=== PATIENT | female | born 1955 | race Caucasian/White ===

== ENCOUNTER 2016-08-16 06:00 | Emergency (ER) | payer OTHER ==
--- NOTE | 2016-08-16 06:46 | ED NURSING NOTES ---
Clinical Report - Nurses [facility] [address] [place] [address] 08/16/2016 6:02 [id number] Triage time 06:Aug 16 2016. Acuity: LEVEL 3. Chief Complaint: (Out of Medication. Anxiety). Alert. AYESHA COMA SCORE: Ayesha Coma Scale: 15- eyes open spontaneously (4); best verbal response- oriented x 4 (5); best motor response- obeys commands (6). --06:34 Scott Delgadillo R.N. 06:24 08/16/16. BP: 111/77. HR: 72. RR: 16. O2 saturation: 100%. Temp: 98.4 F. Pain level now: 0/10. --06:34 Scott Delgadillo R.N. Weight: 52.1 kg. Height/Length: 63 inches. BMI: 20.4. --06:24 Scott Delgadillo R.N. Medications Albuterol Sulfate HFA Inhalation. LamoTRIgine Oral (Tablet Dispersible 200 mg) 1 tablet, day . TraZODone HCl Oral 50 mg, at bedtime. Wellbutrin Oral 150 mg, daily. --06:28 Scott Delgadillo R.N. Allergies Dilaudid. OxyCODONE HCl. --06:28 Scott Delgadillo R.N. History Arrived by private vehicle. Historian: patient. Accompanied by family. ( Out of Medications and becoming more anxious). Onset. (about 2 weeks ago). Treatment STRAP SETTER: None. PAST MEDICAL HX: The patient is post-menopausal. SOCIAL HX: Heavy tobacco smoker (cigarette)- less than 1 pack per day. FALL RISK ASSESSMENT: Fall risk assessment completed. No fall risk identified. NUTRITIONAL RISK ASSESSMENT: The nutritional risk assessment revealed no deficiencies. FUNCTIONAL ASSESSMENT: Functional assessment: no impairments noted. LEARNING NEEDS ASSESSMENT: The learning needs assessment revealed no barriers. SKIN INTEGRITY ASSESSMENT: Skin integrity risk assessment completed. No skin integrity risk identified. --06:34 Scott Delgadillo R.N. PROBLEMS: Pharyngitis. Abscess. Strep Throat. COPD - Chronic Obstructive Pulmonary Disease. Flank Pain. Bladder infection . Viral Disease. Lifestyle / Substance Problems. Epistaxis. Abdominal Pain. Sinusitis. Dental Caries. Dental Pain. Genital Lesion. Depression. --06:32 Scott Delgadillo R.N. ADDITIONAL SURGERIES: Coccyx. Dilatation & Curettage. Foot. Tonsillectomy. Tubal Ligation. --06:32 Scott Delgadillo R.N. Interventions ID and allergy band on patient. To treatment room. --06:34 Scott Delgadillo R.N. PHYSICAL ASSESSMENT Ambulatory to room. GENERAL / NEURO / PSYCH: Alert. Oriented X 4. HEENT: No facial asymmetry noted. Mucous membranes are pink. RESPIRATORY: Chest nontender. Breath sounds within normal limits. CVS: Normal sinus rhythm noted. Capillary refill less than 2 seconds. Pulses within normal limits. GI / : Abdomen soft and nontender and normal bowel sounds. SKIN: Skin intact. Skin is warm and dry. Normal skin turgor. --06:35 Scott Delgadillo R.N. NURSING PROGRESS NOTES Reassurance given. Patient identifiers checked. Call light placed in reach. Side rails up. Bed placed in lowest position. Brakes of bed on. Patient ready for evaluation- chart flagged and ED physician notified. --06:35 Scott Delgadillo R.N. DISPOSITION / DISCHARGE Reviewed medication(s) (Prescription given to pt.). Reviewed referral to family practice. Written instructions provided in Panamanian. The patient was discharged home and accompanied by reinsurance clerk. She left the Emergency Department ambulatory and via private vehicle. Steam Press Operator driving. --17:31 Scott Delgadillo R.N. Departure time: 644. --17:32 Scott Delgadillo R.N. Locked/Released at 08/24/2016 17:33 by Scott Delgadillo R.N.
--- NOTE | 2016-08-16 06:46 | ED NURSING NOTES ---
Clinical Report - Nurses [facility] [address] [place] [address] 08/16/2016 6:02 [id number] TRI[facility] Triage time 06:Aug 16 2016. Acuity: LEVEL 3. Chief Complaint: (Out of Medication. Anxiety). Alert. AYESHA COMA SCORE: Ayesha Coma Scale: 15- eyes open spontaneously (4); best verbal response- oriented x 4 (5); best motor response- obeys commands (6). --06:34 Scott Delgadillo R.N. 06:24 08/16/16. BP: 111/77. HR: 72. RR: 16. O2 saturation: 100%. Temp: 98.4 F. Pain level now: 0/10. --06:34 Scott Delgadillo R.N. Weight: 52.1 kg. Height/Length: 63 inches. BMI: 20.4. --06:24 Scott Delgadillo R.N. Medications Albuterol Sulfate HFA Inhalation. LamoTRIgine Oral (Tablet Dispersible 200 mg) 1 tablet, day . TraZODone HCl Oral 50 mg, at bedtime. Wellbutrin Oral 150 mg, daily. --06:28 Scott Delgadillo R.N. Allergies Dilaudid. OxyCODONE HCl. --06:28 Scott Delgadillo R.N. History Arrived by private vehicle. Historian: patient. Accompanied by family. ( Out of Medications and becoming more anxious). Onset. (about 2 weeks ago). Treatment DAY PORTER: None. PAST MEDICAL HX: The patient is post-menopausal. SOCIAL HX: Heavy tobacco smoker (cigarette)- less than 1 pack per day. FALL RISK ASSESSMENT: Fall risk assessment completed. No fall risk identified. NUTRITIONAL RISK ASSESSMENT: The nutritional risk assessment revealed no deficiencies. FUNCTIONAL ASSESSMENT: Functional assessment: no impairments noted. LEARNING NEEDS ASSESSMENT: The learning needs assessment revealed no barriers. SKIN INTEGRITY ASSESSMENT: Skin integrity risk assessment completed. No skin integrity risk identified. --06:34 Scott Delgadillo R.N. PROBLEMS: Pharyngitis. Abscess. Strep Throat. COPD - Chronic Obstructive Pulmonary Disease. Flank Pain. Bladder infection . Viral Disease. Lifestyle / Substance Problems. Epistaxis. Abdominal Pain. Sinusitis. Dental Caries. Dental Pain. Genital Lesion. Depression. --06:32 Scott Delgadillo R.N. ADDITIONAL SURGERIES: Coccyx. Dilatation & Curettage. Foot. Tonsillectomy. Tubal Ligation. --06:32 Scott Delgadillo R.N. Interventions ID and allergy band on patient. To treatment room. --06:34 Scott Delgadillo R.N. PHYSICAL ASSESSMENT Ambulatory to room. GENERAL / NEURO / PSYCH: Alert. Oriented X 4. HEENT: No facial asymmetry noted. Mucous membranes are pink. RESPIRATORY: Chest nontender. Breath sounds within normal limits. CVS: Normal sinus rhythm noted. Capillary refill less than 2 seconds. Pulses within normal limits. GI / : Abdomen soft and nontender and normal bowel sounds. SKIN: Skin intact. Skin is warm and dry. Normal skin turgor. --06:35 Scott Delgadillo R.N. NURSING PROGRESS NOTES Reassurance given. Patient identifiers checked. Call light placed in reach. Side rails up. Bed placed in lowest position. Brakes of bed on. Patient ready for evaluation- chart flagged and ED physician notified. --06:35 Scott Delgadillo R.N. DISPOSITION / DISCHARGE Reviewed medication(s) (Prescription given to pt.). Reviewed referral to family practice. Written instructions provided in Canadian. The patient was discharged home and accompanied by blind aide. She left the Emergency Department ambulatory and via private vehicle. Accountant Auditor driving. --17:31 Scott Delgadillo R.N. Departure time: 644. --17:32 Scott Delgadillo R.N. Locked/Released at 08/24/2016 17:33 by Scott Delgadillo R.N.
--- NOTE | 2016-08-16 06:46 | ED CLINICAL REPORT ---
Clinical Report - Physicians/Mid Levels [facility] [address] [place] [address] 08/16/2016 6:02 Patient: JEFF SOTO Arrived- By private vehicle. Historian- patient. HISTORY OF PRESENT ILLNESS Chief Complaint: ANXIOUS. This started Past several days. (ran out of medications.). She is non-compliant with medication. The patient has had anxiety. No delusions, suicidal thoughts, self-injury inflicted or hallucinations. The symptoms are described as moderate. No injury is present. Additional history - Patient was issued missed the past 3 appointments with her psychiatrist. Patient states that she was discharged from her clinic in regards to this. Unable to refill medications forpsychiatric conditions. Similar symptoms previously: Seen in a clinic. Hospitalized. REVIEW OF SYSTEMS No headache, chest pain, abdominal pain, fever or difficulty breathing. All systems otherwise negative, except as recorded above. PAST HISTORY See nurses notes. Medications: Albuterol Sulfate HFA Inhalation. LamoTRIgine Oral (Tablet Dispersible 200 mg) 1 tablet, day . TraZODone HCl Oral 50 mg, at bedtime. Wellbutrin Oral 150 mg, daily. Allergies: Dilaudid. OxyCODONE HCl. SOCIAL HISTORY Smoker- current status unknown. History of drug use: marijuana. No alcohol use. ADDITIONAL NOTES The nursing notes have been reviewed. PHYSICAL EXAM Vital Signs: 08/16/2016 06:24 BP: 111/77. HR: 72. RR: 16. O2 saturation: 100%. Temp: 98.4 F. Pain level now: 0/10. Blood pressure normal. Oxygen saturation normal. Appearance: Alert. No acute distress. Appearance is normal. Eyes: Pupils equal, round and reactive to light. Pupillary exam: Right pupil round and reactive to light directly and consensually and with accommodation. Left pupil: round and reactive to light directly and consensually and with accommodation. No abnormal funduscopic findings. Neck: Normal inspection. Neck supple. CVS: Normal heart rate and rhythm. Heart sounds normal. Respiratory: Breath sounds normal. Chest nontender. Abdomen: Soft and nontender. Skin: Skin warm and dry. Normal skin color. Normal skin turgor. Psych / Neuro: Oriented X 3. Mood and affect normal. Abnormal speech. Speech is pressured. Cognition normal. Thought process and content normal. Denies suicidal thoughts. Patient does not express homicidal thoughts. Insight and judgement normal. Cranial nerves normal (as tested). No cerebellar findings. No abnormal finger-nose test. Normal gait. No motor deficit. No weakness. No sensory deficit. Reflexes normal. PROGRESS AND PROCEDURES Course of Care: he patient is a pleasant 61-year-old female with past medical history significant for a complex Psychiatric problems, patient does not have any signs of psychosis or injury to self/danger or harm to others. Patient not having any suicidal ideation. Patient has good insight and judgment. Patient reports that she would like to get back on her medications. Patient was encouraged to follow up with her doctor in regards to the refill of her medications. Patient reports that if she is given a week's supply that should be plenty of time for her to follow-up with her doctor. No signs of infection. The patient has meningitis or other more sinister causes of her symptoms here in the emergency department today. Patient is smiling and active in the emergency department and recurrently jokes with staff and myself. Exam is otherwise unremarkable. Had discussion with patient in regards to workup, diagnosis, home care, follow-up, and return precautions answered. The patient expressed understanding of these instructions and was agreeable to them. Medications were confirmed by pharmacy. Had called [facility]. Spoke to pharmacist on staff there. Medications refilled. I discussion with pharmacist following the patient's departure from the emergency department. Patient had mistaken one of the medications that she was on. The patient had her medications changed via phone. Dosage changed. CLINICAL IMPRESSION 08/16/2016 06:24 BP: 111/77. HR: 72. RR: 16. O2 saturation: 100%. Temp: 98.4 F. Pain level now: 0/10. Blood pressure normal. Oxygen saturation normal. history of depression medication refill for above diagnosis. INSTRUCTIONS Warnings: GENERAL WARNINGS: Return or contact your physician immediately if your condition worsens or changes unexpectedly, if not improving as expected, or if other problems arise. Specifically return if pain, vomiting, bleeding, breathing difficulty or fever. Your Current Medications: CONTINUE TAKING THE FOLLOWING MEDICATIONS: Albuterol Sulfate HFA Inhalation. LamoTRIgine Oral : Tablet Dispersible 200 mg, 1 tablet day. TraZODone HCl Oral : 50 mg at bedtime. Wellbutrin Oral : 150 mg daily. Prescription Medications: Wellbutrin 200 mg once a day. Disp 7 each Paxil 150 mg once daily. Disp 7 each Trazadone 50 mg once before bed. Disp 7 each. Follow-up: Return to the emergency department as needed. Follow up with your doctor in three days. Reason for referral: recheck today's concerns. Summary of care provided to patient via paper. Screening today revealed the patient's blood pressure to be in the normal range. The patient should follow up with a primary care provider for blood pressure management. Understanding of the discharge instructions verbalized by patient. (Electronically signed by Shay Crum Dr. 08/19/2016 10:32)
--- NOTE | 2016-08-24 17:33 | ED MAR SUMMARY ---
..... Medication Administration Record [facility] [address], [place] [id number] Patient: JEFF SOTO Visit ID: [id number] 61y, F Weight: 52.1 kg Height/Length: 63 in BMI: 20.4 ALLERGIES: Dilaudid, OxyCODONE HCl
--- NOTE | 2016-08-24 17:33 | ED DISCHARGE INSTRUCTIONS ---
Patient: JEFF SOTO General Instructions [facility] VisitID: [id number] [place] [address] 61y, F Registration Date/Time: 08/16/2016 08/16/2016 06:24 BP: 111/77. HR: 72. RR: 16. O2 saturation: 100%. Temp: 98.4 F. Pain level now: 0/10. Blood pressure normal. Oxygen saturation normal. history of depression medication refill for above diagnosis. INSTRUCTIONS Warnings: GENERAL WARNINGS: Return or contact your physician immediately if your condition worsens or changes unexpectedly, if not improving as expected, or if other problems arise. Specifically return if pain, vomiting, bleeding, breathing difficulty or fever. Your Current Medications: CONTINUE TAKING THE FOLLOWING MEDICATIONS: Albuterol Sulfate HFA Inhalation. LamoTRIgine Oral : Tablet Dispersible 200 mg, 1 tablet day. TraZODone HCl Oral : 50 mg at bedtime. Wellbutrin Oral : 150 mg daily. Prescription Medications: Wellbutrin 200 mg once a day. Disp 7 each Paxil 150 mg once daily. Disp 7 each Trazadone 50 mg once before bed. Disp 7 each. Follow-up: Return to the emergency department as needed. Follow up with your doctor in three days. Reason for referral: recheck today's concerns. Summary of care provided to patient via paper. Screening today revealed the patient's blood pressure to be in the normal range. The patient should follow up with a primary care provider for blood pressure management. Understanding of the discharge instructions verbalized by patient. (Electronically signed by Shay Crum Dr. 08/19/2016 10:32)
--- NOTE | 2016-08-24 17:33 | ED MAR SUMMARY ---
..... Medication Administration Record [facility] [address] [place], [place] [id number] Patient: JEFF SOTO Visit ID: [id number] 61y, F Weight: 52.1 kg Height/Length: 63 in BMI: 20.4 ALLERGIES: Dilaudid, OxyCODONE HCl
--- NOTE | 2016-08-24 17:33 | ED MED RECONCILIATION SUMMARY ---
Patient: JEFF SOTO Medication Reconciliation Report [facility] VisitID: [id number] [place] [address] 61y, F Registration Date/Time: 08/16/2016 Weight: 52.1 kg Height/Length: 63 in. BMI: 20.4 ALLERGIES: Dilaudid, OxyCODONE HCl The patient's Home Medications are listed below: CONTINUE TAKING THE FOLLOWING MEDICATIONS: Albuterol Sulfate HFA Inhalation LamoTRIgine Oral (200 mg) 1 tablet, day TraZODone HCl Oral 50 mg, at bedtime Wellbutrin Oral 150 mg, daily The source(s) of the original Home Medication information: Not obtained. The following Medications were given to the patient in the Emergency Department: None. The following Medications were prescribed to the patient: Wellbutrin 200 mg once a day. Disp 7 eachPaxil 150 mg once daily. Disp 7 eachTrazadone 50 mg once before bed. Disp 7 each. -- Shay Crum Dr.
--- NOTE | 2016-08-24 17:33 | ED MED RECONCILIATION SUMMARY ---
Patient: JEFF SOTO Medication Reconciliation Report [facility] VisitID: [id number] [place] [address] 61y, F Registration Date/Time: 08/16/2016 Weight: 52.1 kg Height/Length: 63 in. BMI: 20.4 ALLERGIES: Dilaudid, OxyCODONE HCl The patient's Home Medications are listed below: CONTINUE TAKING THE FOLLOWING MEDICATIONS: Albuterol Sulfate HFA Inhalation LamoTRIgine Oral (200 mg) 1 tablet, day TraZODone HCl Oral 50 mg, at bedtime Wellbutrin Oral 150 mg, daily The source(s) of the original Home Medication information: Not obtained. The following Medications were given to the patient in the Emergency Department: None. The following Medications were prescribed to the patient: Wellbutrin 200 mg once a day. Disp 7 eachPaxil 150 mg once daily. Disp 7 eachTrazadone 50 mg once before bed. Disp 7 each. -- Shay Crum Dr.
--- NOTE | 2016-08-24 17:33 | ED DISCHARGE INSTRUCTIONS ---
Patient: JEFF SOTO General Instructions [facility] VisitID: [id number] [place] [address] 61y, F Registration Date/Time: 08/16/2016 08/16/2016 06:24 BP: 111/77. HR: 72. RR: 16. O2 saturation: 100%. Temp: 98.4 F. Pain level now: 0/10. Blood pressure normal. Oxygen saturation normal. history of depression medication refill for above diagnosis. INSTRUCTIONS Warnings: GENERAL WARNINGS: Return or contact your physician immediately if your condition worsens or changes unexpectedly, if not improving as expected, or if other problems arise. Specifically return if pain, vomiting, bleeding, breathing difficulty or fever. Your Current Medications: CONTINUE TAKING THE FOLLOWING MEDICATIONS: Albuterol Sulfate HFA Inhalation. LamoTRIgine Oral : Tablet Dispersible 200 mg, 1 tablet day. TraZODone HCl Oral : 50 mg at bedtime. Wellbutrin Oral : 150 mg daily. Prescription Medications: Wellbutrin 200 mg once a day. Disp 7 each Paxil 150 mg once daily. Disp 7 each Trazadone 50 mg once before bed. Disp 7 each. Follow-up: Return to the emergency department as needed. Follow up with your doctor in three days. Reason for referral: recheck today's concerns. Summary of care provided to patient via paper. Screening today revealed the patient's blood pressure to be in the normal range. The patient should follow up with a primary care provider for blood pressure management. Understanding of the discharge instructions verbalized by patient. (Electronically signed by Shay Crum Dr. 08/19/2016 10:32)
== END 2016-08-16 06:50 | disposition home or self-care (01) ==
LOC: ED SRH 06:00
DX: F32.9 Major depressive disorder, single episode, unspecified (principal); Z76.0 Encounter for issue of repeat prescription; Z88.5 Allergy status to narcotic agent; Z79.51 Long term (current) use of inhaled steroids

== ENCOUNTER 2016-12-02 14:30 | Emergency (ER) | payer OTHER ==
--- NOTE | 2016-12-02 15:37 | DIAGNOSTIC IMAGING REPORT ---
PROCEDURE: XR ANKLE 3 OR 4 VIEWS - LEFT INDICATION: TRAUMA/INJURY TECHNIQUE: Four views. COMPARISON: Left foot films 07/02/2016 FINDINGS: Osseous structures and joint spaces are normal. IMPRESSION: 1. Normal left ankle.
--- NOTE | 2016-12-02 16:27 | ED ORDER SUMMARY ---
..... Patient: JEFF SOTO OrderSheet [facility] VisitID: [id number] [address] [place] [address] 61y, F Registration Date/Time: 12/02/2016 ORDER SHEET Weight: 68.0 kg (stated) Allergies: Dilaudid, OxyCODONE HCl GENERAL ORDERS: Ankle 3 or 4V Left Urgent (15:03 12/02/2016 EKoroleva P.A.-C) (Ack 15:08 LNations ER Tech1) (15:16 TLewis R.N.) CT Lower Extremity Without Contrast - Left (calcaneous) Urgent (15:33 12/02/2016 EKorolemariam P.A.-C) (Ack 15:39 LNations ER Tech1) (16:10 TLewis R.N.) Splint (LE) (Left) (boot) (16:33 12/02/2016 EKorolemariam P.A.-C) (Ack 16:36 LNations ER Tech1) (16:53 TLewis R.N.) MEDICATION ORDERS: Hydrocodone-APAP PO 7.5/325 mg (NOW, HIGH ALERT MEDICATION) (15:03 12/02/2016 Precious P.A.-C) (15:13 TLewis R.N.) IV FLUIDS: ORDER SHEET NOTES: [Electronically signed by Kelly Orosco P.A.-C (16:39 12/02/2016)] [Electronically signed by Arya Miranda R.N. (16:53 12/02/2016)] [Electronically locked/signed by Arya Miranda R.N. (16:53 12/02/2016)]
--- NOTE | 2016-12-02 16:27 | ED CLINICAL REPORT ---
Clinical Report - Physicians/Mid Levels [facility] [address] [place] [address] 12/02/2016 14:30 [id number] Time Seen: 14:54 Dec 02 2016. Arrived- By private vehicle. Historian- patient. HISTORY OF PRESENT ILLNESS Chief Complaint: Injury to the left ankle. The injury happened just prior to arrival. Occurred at home. The patient sustained a direct blow. Patient is experiencing mild pain. Patient denies injury to the head or neck. (she was at home when she jumped about 3 feet from the deck, O LOC. Patient unable to bear weight, previous metatarsal fracture and surgery to the same foot.). REVIEW OF SYSTEMS The patient complains of pain on weight bearing. All systems otherwise negative, except as recorded above. PAST HISTORY See nurses notes. Problems: Bipolar Disorder. Pharyngitis. Abscess. Strep Throat. COPD - Chronic Obstructive Pulmonary Disease. Flank Pain. Bladder infection . Viral Disease. Lifestyle / Substance Problems. Epistaxis. Ankles. Abdominal Pain. Vomiting. Back Pain. Back Injury. Sinusitis. Sinus Problems. Mechanism of Injury. Dental Caries. Immunizations. Dental Pain. LNMP - Last Normal Menstrual Period. Genital Lesion. Depression. Additional Surgeries: Coccyx. Dilatation & Curettage. Foot. Tonsillectomy. Tubal Ligation. Medications: Albuterol Sulfate HFA Inhalation. LamoTRIgine Oral (Tablet Dispersible 200 mg) 1 tablet, day . TraZODone HCl Oral 50 mg, at bedtime. Wellbutrin Oral 150 mg, daily. Allergies: Dilaudid. OxyCODONE HCl. SOCIAL HISTORY Current every day heavy tobacco smoker. Alcohol use. Patient is a recovering alcoholic. ADDITIONAL NOTES The nursing notes have been reviewed. PHYSICAL EXAM Vital Signs: 12/02/2016 14:54 BP: 114/79. HR: 62. RR: 22. O2 saturation: 100%. Temp: 98.1 F. Appearance: Alert. Head: Head atraumatic. CVS: Normal heart rate and rhythm. Heart sounds normal. Respiratory: No respiratory distress. Breath sounds normal. Skin: Skin intact. Skin warm. Extremities: Left leg. No tenderness or swelling. Ankle stable. Left medial ankle. No tenderness or swelling. Left anterior ankle. No tenderness or swelling. Left posterior ankle. Left heel: tenderness and swelling. No soft-tissue tenderness of the feet or ankles. (neg soto test, no achilles tenderness). Gait: The patient was unable to bear weight. Neuro, Vascular and Tendons: Vascular status intact. Sensation intact. Motor intact. No functional tendon deficit or tendon injury seen. No sensory deficit or weakness. Neuro: Oriented X 3. LABS, X-RAYS, AND EKG Lt Ankle X-ray: (IMPRESSION: 1. Normal left ankle. Electronically Final signed by:Diego Reilly MD 12/02/2016 3:37:57 PM). Note - Tests: (CT Lower ext: neg for any acute fx.). PROGRESS AND PROCEDURES PROCEDURES (Ankle BOOT LEFT). Course of Care: patient in the area is stable, no distress. No Achilles tenderness. Patient with no signs of fracture, arthritic changes. Patient is very stable. No other injuries noted. Difficulty ambulating, improved with boot. Will use a short comfort. Patient is stable. Symptoms better. Patient/family counseled. Disposition: Discharged. Condition: good. CLINICAL IMPRESSION Sprain of the tibiofibular and calcaneofibular ligament of the left ankle. INSTRUCTIONS Apply ice. Elevate affected areas above chest level. You may walk and bear weight as tolerated. OTC Medications: Take OTC medications according to label instructions. Available over the counter. Motrin (available over the counter): take according to label instructions. Follow-up: Follow up with your doctor in five days as needed. (Electronically signed by Kelly Orosco P.A.-C 12/02/2016 16:39)
--- NOTE | 2016-12-02 16:27 | ED NURSING NOTES ---
Clinical Report - Nurses [facility] [address] [place] [address] 12/02/2016 14:30 Patient: JEFF SOTO TRIAGE Triage time 14:54. Acuity: LEVEL 3. Chief Complaint: INJURY TO LEFT ANKLE. --15:02 Arya Miranda R.N. 14:54 12/02/16. BP: 114/79. HR: 62. RR: 22. O2 saturation: 100%. Temp: 98.1 F. Pain level now 04/12. --15:02 Arya Miranda R.N. Weight: 68 kg stated. Height/Length: 66 inches Per Patient. BMI: 24.2. --15:00 Arya Miranda R.N. Medications Albuterol Sulfate HFA Inhalation. LamoTRIgine Oral (Tablet Dispersible 200 mg) 1 tablet, day . TraZODone HCl Oral 50 mg, at bedtime. Wellbutrin Oral 150 mg, daily. --14:58 Arya Miranda R.N. Medication/allergy information source: the patient. --15:02 Arya Miranda R.N. Allergies Dilaudid. OxyCODONE HCl. --14:58 Arya Miranda R.N. History Arrived by private vehicle. Historian: patient. Accompanied by family. This occurred just prior to arrival. Occurred at home. ( Pt jumped off a deck and landed on cement on her left ankle, around 3 feet. Pt cant bear weight on the left foot. Pt had broken metatarsals in the left foot and had sx around 5 yrs ago.). Treatment HVAC RESIDENTIAL SERVICE TECHNICIAN: None. SOCIAL HX: Current every day heavy tobacco smoker (cigarette)- 1 pack per day. Alcohol use. Patient is a recovering alcoholic. History of heavy drug use: marijuana. --15:02 Arya Miranda R.N. PROBLEMS: Pharyngitis. Abscess. Strep Throat. COPD - Chronic Obstructive Pulmonary Disease. Flank Pain. Bladder infection . Viral Disease. Lifestyle / Substance Problems. Epistaxis. Ankles. Abdominal Pain. Vomiting. Back Pain. Back Injury. Sinusitis. Sinus Problems. Mechanism of Injury. Dental Caries. Immunizations. Dental Pain. LNMP - Last Normal Menstrual Period. Genital Lesion. Depression. --14:59 Arya Miranda R.N. Bipolar Disorder. --15:01 Arya Miranda R.N. Interventions ID band on patient. To treatment room. --15:02 Arya Miranda R.N. PHYSICAL ASSESSMENT GENERAL / NEURO / PSYCH: Oriented X 4. Appears in pain and anxious. EXTREMITIES: Limited ROM present in the left ankle. Capillary refill is less than 2 seconds in the extremities. Extremity pulses are within normal limits. She was unable to bear weight. (left ankle). Neuro-vascular status intact to the extremity. Left dorsal foot: tenderness and swelling. ( pt does have full sensation in the left toes and skin is warm to the touch). SKIN: Skin intact. Skin is warm and dry. --15:04 Arya Miranda R.N. NURSING PROGRESS NOTES Two patient identifiers checked. Call light placed in reach. Side rails up x 1. Bed placed in lowest position. Brakes of bed on. --15:04 Arya Miranda R.N. 15:13 12/02/2016 Hydrocodone-APAP (Hydrocodone-Acetaminophen) PO 15 mL given. Allergies verified, confirmed 5 rights and sedative warning given to the patient. --15:13 Arya Miranda R.N. <<STRICKEN ENTRY-- ( Pt was given water for a po challenge. Pt has no vomited since she has been in the ER.). --16:38 Arya Miranda R.N. --END STRIKE>> Charted On Wrong Patient --16:39 Arya Miranda R.N. <<STRICKEN ENTRY-- 16:36 12/02/16. BP: 112/50. HR: 82. RR: 15. O2 saturation: 100%. Pain level now 0/10. --16:38 Arya Miranda R.N. --END STRIKE>> Charted on wrong patient. --16:39 Arya Miranda R.N. DISPOSITION / DISCHARGE Departure time: 16:50. Condition at departure: improved. ( Pt was given a boot for the left foot and crutches. Pt was able to use the crutches to ambulate to the lobby without assistance.). No learning barriers present. Discharge instructions provided and reviewed with the patient. Patient verbalized understanding. Written instructions provided in Yi. The patient was discharged by the physician golf player assistant. She was discharged home and accompanied by spouse. She left the Emergency Department on crutches and via private vehicle. Spouse driving. --16:52 Arya Miranda R.N. 16:50 12/02/16. BP: 118/80. HR: 65. RR: 20. O2 saturation: 100%. Pain level now 5/10. --16:52 Arya Miranda R.N. AYESHA COMA SCORE: Ayesha Coma Scale: 15- eyes open spontaneously (4); best verbal response- oriented x 4 (5); best motor response- obeys commands (6). --16:53 Arya Miranda R.N. Locked/Released at 12/02/2016 16:53 by Arya Miranda R.N.
--- NOTE | 2016-12-02 16:27 | ED ORDER SUMMARY ---
..... Patient: JEFF SOTO OrderSheet [facility] VisitID: [id number] [address] [place] [address] 61y, F Registration Date/Time: 12/02/2016 ORDER SHEET Weight: 68.0 kg (stated) Allergies: Dilaudid, OxyCODONE HCl GENERAL ORDERS: Ankle 3 or 4V Left Urgent (15:03 12/02/2016 EKoroleva P.A.-C) (Ack 15:08 LNations ER Tech1) (15:16 TLewis R.N.) CT Lower Extremity Without Contrast - Left (calcaneous) Urgent (15:33 12/02/2016 EKorolemariam P.A.-C) (Ack 15:39 LNations ER Tech1) (16:10 TLewis R.N.) Splint (LE) (Left) (boot) (16:33 12/02/2016 EKorolemariam P.A.-C) (Ack 16:36 LNations ER Tech1) (16:53 TLewis R.N.) MEDICATION ORDERS: Hydrocodone-APAP PO 7.5/325 mg (NOW, HIGH ALERT MEDICATION) (15:03 12/02/2016 Precious P.A.-C) (15:13 TLewis R.N.) IV FLUIDS: ORDER SHEET NOTES: [Electronically signed by Kelly Orosco P.A.-C (16:39 12/02/2016)] [Electronically signed by Arya Miranda R.N. (16:53 12/02/2016)] [Electronically locked/signed by Arya Miranda R.N. (16:53 12/02/2016)]
--- NOTE | 2016-12-02 16:27 | ED NURSING NOTES ---
Clinical Report - Nurses [facility] [address] [place] [address] 12/02/2016 14:30 Patient: JEFF SOTO TRIAGE Triage time 14:54. Acuity: LEVEL 3. Chief Complaint: INJURY TO LEFT ANKLE. --15:02 Arya Miranda R.N. 14:54 12/02/16. BP: 114/79. HR: 62. RR: 22. O2 saturation: 100%. Temp: 98.1 F. Pain level now 04/12. --15:02 Arya Miranda R.N. Weight: 68 kg stated. Height/Length: 66 inches Per Patient. BMI: 24.2. --15:00 Arya Miranda R.N. Medications Albuterol Sulfate HFA Inhalation. LamoTRIgine Oral (Tablet Dispersible 200 mg) 1 tablet, day . TraZODone HCl Oral 50 mg, at bedtime. Wellbutrin Oral 150 mg, daily. --14:58 Arya Miranda R.N. Medication/allergy information source: the patient. --15:02 Arya Miranda R.N. Allergies Dilaudid. OxyCODONE HCl. --14:58 Ayra Miranda R.N. History Arrived by private vehicle. Historian: patient. Accompanied by family. This occurred just prior to arrival. Occurred at home. ( Pt jumped off a deck and landed on cement on her left ankle, around 3 feet. Pt cant bear weight on the left foot. Pt had broken metatarsals in the left foot and had sx around 5 yrs ago.). Treatment EMERGENCY MANAGEMENT SPECIALIST: None. SOCIAL HX: Current every day heavy tobacco smoker (cigarette)- 1 pack per day. Alcohol use. Patient is a recovering alcoholic. History of heavy drug use: marijuana. --15:02 Arya Miranda R.N. PROBLEMS: Pharyngitis. Abscess. Strep Throat. COPD - Chronic Obstructive Pulmonary Disease. Flank Pain. Bladder infection . Viral Disease. Lifestyle / Substance Problems. Epistaxis. Ankles. Abdominal Pain. Vomiting. Back Pain. Back Injury. Sinusitis. Sinus Problems. Mechanism of Injury. Dental Caries. Immunizations. Dental Pain. LNMP - Last Normal Menstrual Period. Genital Lesion. Depression. --14:59 Arya Miranda R.N. Bipolar Disorder. --15:01 Arya Miranda R.N. Interventions ID band on patient. To treatment room. --15:02 Arya Miranda R.N. PHYSICAL ASSESSMENT GENERAL / NEURO / PSYCH: Oriented X 4. Appears in pain and anxious. EXTREMITIES: Limited ROM present in the left ankle. Capillary refill is less than 2 seconds in the extremities. Extremity pulses are within normal limits. She was unable to bear weight. (left ankle). Neuro-vascular status intact to the extremity. Left dorsal foot: tenderness and swelling. ( pt does have full sensation in the left toes and skin is warm to the touch). SKIN: Skin intact. Skin is warm and dry. --15:04 Arya Miranda R.N. NURSING PROGRESS NOTES Two patient identifiers checked. Call light placed in reach. Side rails up x 1. Bed placed in lowest position. Brakes of bed on. --15:04 Arya Miranda R.N. 15:13 12/02/2016 Hydrocodone-APAP (Hydrocodone-Acetaminophen) PO 15 mL given. Allergies verified, confirmed 5 rights and sedative warning given to the patient. --15:13 Arya Miranda R.N. <<STRICKEN ENTRY-- ( Pt was given water for a po challenge. Pt has no vomited since she has been in the ER.). --16:38 Arya Miranda R.N. --END STRIKE>> Charted On Wrong Patient --16:39 Arya Miranda R.N. <<STRICKEN ENTRY-- 16:36 12/02/16. BP: 112/50. HR: 82. RR: 15. O2 saturation: 100%. Pain level now 0/10. --16:38 Arya Miranda R.N. --END STRIKE>> Charted on wrong patient. --16:39 Arya Miranda R.N. DISPOSITION / DISCHARGE Departure time: 16:50. Condition at departure: improved. ( Pt was given a boot for the left foot and crutches. Pt was able to use the crutches to ambulate to the lobby without assistance.). No learning barriers present. Discharge instructions provided and reviewed with the patient. Patient verbalized understanding. Written instructions provided in Lao. The patient was discharged by the physician leasing assistant. She was discharged home and accompanied by spouse. She left the Emergency Department on crutches and via private vehicle. Spouse driving. --16:52 Arya Miranda R.N. 16:50 12/02/16. BP: 118/80. HR: 65. RR: 20. O2 saturation: 100%. Pain level now 5/10. --16:52 Arya Miranda R.N. AYESHA COMA SCORE: Ayesha Coma Scale: 15- eyes open spontaneously (4); best verbal response- oriented x 4 (5); best motor response- obeys commands (6). --16:53 Arya Miranda R.N. Locked/Released at 12/02/2016 16:53 by Arya Miranda R.N.
--- NOTE | 2016-12-02 16:48 | DIAGNOSTIC IMAGING REPORT ---
PROCEDURE: CT LOWER EXT W/O CONTRAST-LEFT INDICATION: Left heel pain. TECHNIQUE: Axial scans with coronal and sagittal re-formations. COMPARISON: None. FINDINGS: There is no evidence of a fracture. Calcaneus is unremarkable. Mild degenerative changes of the left tarsal, first, second and third tarsometatarsal joints. Soft tissues are unremarkable. IMPRESSION: 1. No evidence of a calcaneal fracture 2. Mild osteoarthritic changes of the tarsal, first, second and third tarsometatarsal joints 3. Results discussed with Ayanna Orosco PAC
--- NOTE | 2016-12-02 16:54 | ED MAR SUMMARY ---
..... Medication Administration Record [facility] [address] [place] [address] Patient: JEFF SOTO Visit ID: [id number] 61y, F Weight: 68.0 kg Height/Length: 66 in BMI: 24.2 ALLERGIES: Dilaudid, OxyCODONE HCl Given 15:13 12/02/2016 Arya Miranda R.N. Medication Administered: HYDROCODONE-APAP [PO] (HYDROCODONE-ACETAMINOPHEN), Dose: 15 mL PO. Medication Ordered: Hydrocodone-APAP PO 7.5/325 mg (NOW, HIGH ALERT MEDICATION).
--- NOTE | 2016-12-02 16:54 | ED MAR SUMMARY ---
..... Medication Administration Record [facility] [address] [place] [address] Patient: JEFF SOTO Visit ID: [id number] 61y, F Weight: 68.0 kg Height/Length: 66 in BMI: 24.2 ALLERGIES: Dilaudid, OxyCODONE HCl Given 15:13 12/02/2016 Arya Miranda R.N. Medication Administered: HYDROCODONE-APAP [PO] (HYDROCODONE-ACETAMINOPHEN), Dose: 15 mL PO. Medication Ordered: Hydrocodone-APAP PO 7.5/325 mg (NOW, HIGH ALERT MEDICATION).
--- NOTE | 2016-12-02 16:54 | ED MED RECONCILIATION SUMMARY ---
Patient: JEFF SOTO Medication Reconciliation Report [facility] VisitID: [id number] [address] [place] [address] 61y, F Registration Date/Time: 12/02/2016 Weight: 68.0 kg Height/Length: 66 in. BMI: 24.2 ALLERGIES: Dilaudid, OxyCODONE HCl The patient's Home Medications are listed below: THE FOLLOWING MEDICATIONS NEED TO BE RECONCILED: Albuterol Sulfate HFA Inhalation LamoTRIgine Oral (200 mg) 1 tablet, day TraZODone HCl Oral 50 mg, at bedtime Wellbutrin Oral 150 mg, daily The source(s) of the original Home Medication information: patient The following Medications were given to the patient in the Emergency Department: Hydrocodone-APAP [PO] PO 15 mL, administered: 12/02/2016 3:13:00 PM The following Medications were prescribed to the patient: Take OTC medications according to label instructions. Available over the counter. -- Kelly Orosco, P.A.-Jaclyn Motrin (available over the counter): take according to label instructions. -- Kelly Orosco, P.A.-C
--- NOTE | 2016-12-02 16:54 | ED MED RECONCILIATION SUMMARY ---
Patient: JEFF SOTO Medication Reconciliation Report [facility] VisitID: [id number] [address] [place] [address] 61y, F Registration Date/Time: 12/02/2016 Weight: 68.0 kg Height/Length: 66 in. BMI: 24.2 ALLERGIES: Dilaudid, OxyCODONE HCl The patient's Home Medications are listed below: THE FOLLOWING MEDICATIONS NEED TO BE RECONCILED: Albuterol Sulfate HFA Inhalation LamoTRIgine Oral (200 mg) 1 tablet, day TraZODone HCl Oral 50 mg, at bedtime Wellbutrin Oral 150 mg, daily The source(s) of the original Home Medication information: patient The following Medications were given to the patient in the Emergency Department: Hydrocodone-APAP [PO] PO 15 mL, administered: 12/02/2016 3:13:00 PM The following Medications were prescribed to the patient: Take OTC medications according to label instructions. Available over the counter. -- Kelly Orosco, P.A.-Jaclyn Motrin (available over the counter): take according to label instructions. -- Kelly Orosco, P.A.-C
--- NOTE | 2016-12-02 16:54 | ED DISCHARGE INSTRUCTIONS ---
Patient: JEFF SOTO General Instructions [facility] VisitID: [id number] [place] [address] 61y, F Registration Date/Time: 12/02/2016 Sprain of the tibiofibular and calcaneofibular ligament of the left ankle. INSTRUCTIONS Apply ice. Elevate affected areas above chest level. You may walk and bear weight as tolerated. OTC Medications: Take OTC medications according to label instructions. Available over the counter. Motrin (available over the counter): take according to label instructions. Follow-up: Follow up with your doctor in five days as needed. ADDITIONAL INFORMATION Sprain, Ankle,With X-Ray A sprain is an injury to the ligaments or capsule that holds a joint together. There are no broken bones. Most sprains take from four to six weeks to heal. If the ligament is completely torn (severe sprain), it can take several months to recover. Mild to moderate sprains may be treated with an elastic wrap or an in-shoe splint to provide support and prevent re-injury. A mild sprain may not require any additional support. A severe sprain may require surgery to repair. Home care The following guidelines will help you care for your injury at home: Stay off the injured leg as much as possible until you can walk on it without pain. If you have a lot of pain with walking, crutches or a walker may be prescribed. (These can be rented or purchased at many pharmacies and surgical or orthopedic supply stores). Follow your doctor's advice regarding when to begin bearing weight on that leg. Keep your leg elevated to reduce pain and swelling. When sleeping, place a pillow under the injured leg. When sitting, support the injured leg so it is level with your waist. This is very important during the first 48 hours. Apply an ice pack (ice cubes in a plastic bag, wrapped in a towel) over the injured area for 20 minutes every 12 hours the first day. You can place the ice pack directly over the splint/cast. If you were given a boot, open it to apply the ice pack. Continue with ice packs 34 times a day for the next two days, then as needed for the relief of pain and swelling. You may use acetaminophen or ibuprofen to control pain, unless another pain medicine was prescribed. If you have chronic liver or kidney disease or ever had a stomach ulcer or GI bleeding, talk with your doctor before using these medicines. You may return to sports after healing, when you can run without pain. A sprained ankle is at risk for re-injury during the first six weeks. During that time, protect your ankle with an in-shoe splint that prevents tilting of your ankle from side to side. This is very important if you do active work or play sports during that time. Follow-up care Any X-rays you had today dont show any broken bones, breaks, or fractures. Sometimes fractures dont show up on the first X-ray. Bruises and sprains can sometimes hurt as much as a fracture. These injuries can take time to heal completely. If your symptoms dont improve or they get worse, talk with your doctor. You may need a repeat X-ray. When to seek medical care Get prompt medical attention if any of the following occur: The plaster cast or splint gets wet or soft The fiberglass cast or splint gets wet and does not dry for 24 hours Pain or swelling increases, or redness appears Toes become cold, blue, numb or tingly Re-injure your ankle You have been given the following additional information: Sprain, Ankle, With X-Ray You may walk and bear weight as tolerated. (Electronically signed by Kelly Orosco P.A.-C 12/02/2016 16:39)
== END 2016-12-02 16:50 | disposition home or self-care (01) ==
LOC: ED SRH 14:30
DX: S93.432A Sprain of tibiofibular ligament of left ankle, initial encounter (principal); S93.412A Sprain of calcaneofibular ligament of left ankle, initial encounter; W13.8XXA Fall from, out of or through other building or structure, initial encounter; Y93.39 Activity, other involving climbing, rappelling and jumping off; Y92.007 Garden or yard of unspecified non-institutional (private) residence as the place of occurrence of the external cause; F17.210 Nicotine dependence, cigarettes, uncomplicated; Z79.51 Long term (current) use of inhaled steroids; J44.9 Chronic obstructive pulmonary disease, unspecified; Z79.899 Other long term (current) drug therapy

== ENCOUNTER 2016-12-23 10:37 | Outpatient (CLI) | payer OTHER ==
--- NOTE | 2016-12-23 13:52 | DIAGNOSTIC IMAGING REPORT ---
PROCEDURE: XR FOOT 3 VIEWS - RIGHT INDICATION: FOOT PX,RIGHT TECHNIQUE: Three views. COMPARISON: None. FINDINGS: There is a nondisplaced incomplete fracture of the right fifth metatarsal. This is only visible on the oblique view. IMPRESSION: 1. Incomplete nondisplaced fracture of the right fifth metatarsal.
== END 2016-12-23 23:00 ==
LOC: XR SRH 10:37
DX: S92.301A Fracture of unspecified metatarsal bone(s), right foot, initial encounter for closed fracture (principal)

== ENCOUNTER 2016-12-31 02:00 | Emergency (ER) | payer OTHER ==
--- NOTE | 2016-12-31 03:43 | ED ORDER SUMMARY ---
..... Patient: JEFF SOTO OrderSheet [facility] VisitID: [id number] [place] [address] 61y, F Registration Date/Time: 12/31/2016 ORDER SHEET Weight: 52.6 kg (stated) Allergies: Dilaudid, OxyCODONE HCl GENERAL ORDERS: CBC w Diff Urgent (02:12/31/2016 Dylan MAIN) (Ack 2:13 CHagrio ER Guardian Family Member) (2:16 JQuivey R.N.) CMP Urgent (02:12/31/2016 Dylan MAIN) (Ack 2:13 [place] ER Guardian Family Member) (2:16 JQuivey R.N.) UA-Culture if indicated Urgent (:12/31/2016 Dylan MAIN) (Ack 2:13 [place] ER Guardian Family Member) (2:16 JQuivey R.N.) Amylase Urgent (02:12/31/2016 Dylan MAIN) (Ack 2:13 [place] ER Guardian Family Member) (2:16 JQuivey R.N.) Lipase Urgent (02:12/31/2016 Dylan MAIN) (Ack 2:13 [place] ER Guardian Family Member) (2:16 JQuivey R.N.) Urine Urgent (02:12/31/2016 Dylan MAIN) (Ack 2:13 [place] ER Guardian Family Member) (2:16 JQuivey R.N.) MEDICATION ORDERS: Phenergan IV 25 mg (NOW) (03:08 12/31/2016 Dylan MAIN) (3:24 DDavis R.N.) KCl PO 20 meq (NOW) (03:09 12/31/2016 Dylan MAIN) (3:24 DDavis R.N.) IV FLUIDS: IV NS : initial bolus 1000 mL (1000 mL/hr), then 200 mL/hr for 4h (NOW); Urgent (02:12/31/2016 Dylan MAIN) (Ack 2:17 JQuivey R.N.) (2:23 DDavis R.N.) Zofran IV 4 mg (NOW) (02:12/31/2016 Dylan MAIN) (Ack 2:17 Walter Cabello) (2:23 Lakhwinder IbarraNJaylyn) Protonix IVP 40mg 40 mg (Mix in NS 10ml over 2min) (03:07 12/31/2016 Dylan MAIN) (3:23 Lakhwinder Garcia.NJaylyn) ORDER SHEET NOTES: [Electronically signed by Scott Alatorre R.N. (05:14 12/31/2016)] [Electronically signed by Ronny Norman MD (21:37 12/31/2016)] [Electronically locked/signed by Scott Alatorre R.N. (05:14 12/31/2016)]
--- NOTE | 2016-12-31 03:43 | ED ORDER SUMMARY ---
..... Patient: JEFF SOTO OrderSheet [facility] VisitID: [id number] [place] [address] 61y, F Registration Date/Time: 12/31/2016 ORDER SHEET Weight: 52.6 kg (stated) Allergies: Dilaudid, OxyCODONE HCl GENERAL ORDERS: CBC w Diff Urgent (02:12/31/2016 Dylan MAIN) (Ack 2:13 CHagrio ER Supervisor Electric) (2:16 JQuivey R.N.) CMP Urgent (02:12/31/2016 Dylan MAIN) (Ack 2:13 [place] ER Supervisor Electric) (2:16 JQuivey R.N.) UA-Culture if indicated Urgent (:12/31/2016 Dylan MAIN) (Ack 2:13 [place] ER Supervisor Electric) (2:16 JQuivey R.N.) Amylase Urgent (02:12/31/2016 Dylan MAIN) (Ack 2:13 [place] ER Supervisor Electric) (2:16 JQuivey R.N.) Lipase Urgent (02:12/31/2016 Dylan MAIN) (Ack 2:13 [place] ER Supervisor Electric) (2:16 JQuivey R.N.) Urine Urgent (02:12/31/2016 Dylan MAIN) (Ack 2:13 [place] ER Supervisor Electric) (2:16 JQuivey R.N.) MEDICATION ORDERS: Phenergan IV 25 mg (NOW) (03:08 12/31/2016 Dylan MAIN) (3:24 DDavis R.N.) KCl PO 20 meq (NOW) (03:09 12/31/2016 Dylan MAIN) (3:24 DDavis R.N.) IV FLUIDS: IV NS : initial bolus 1000 mL (1000 mL/hr), then 200 mL/hr for 4h (NOW); Urgent (02:12/31/2016 Dylan MAIN) (Ack 2:17 JQuivey R.N.) (2:23 DDavis R.N.) Zofran IV 4 mg (NOW) (02:12/31/2016 Dylan MAIN) (Ack 2:17 Walter Cabello) (2:23 Lakhwinder IbarraNJaylyn) Protonix IVP 40mg 40 mg (Mix in NS 10ml over 2min) (03:07 12/31/2016 Dylan MAIN) (3:23 Lakhwinder Garcia.NJaylyn) ORDER SHEET NOTES: [Electronically signed by Scott Alatorre R.N. (05:14 12/31/2016)] [Electronically signed by Ronny Norman MD (21:37 12/31/2016)] [Electronically locked/signed by Scott Alatorre R.N. (05:14 12/31/2016)]
--- NOTE | 2016-12-31 03:43 | ED CLINICAL REPORT ---
Clinical Report - Physicians/Mid Levels [facility] [address] [place] [address] 12/31/2016 1:59 Patient: JEFF SOTO Time Seen: 02:09. Arrived- By private vehicle. Historian- patient. HISTORY OF PRESENT ILLNESS Chief Complaint: VOMITING. This started 2 days ago and is still present. It was abrupt in onset and has been intermittent and waxing/waning. No recent travel. She has had nausea, vomiting. The vomiting has occurred numerous times and has been bilious and constant abdominal pain. The pain is described as located in the central area of the abdomen. She has had diarrhea. This has occurred several times. No bloody or blood-tinged diarrhea. No black stools, bloody stools, constipation, flank pain or history of possible bad food exposure. No known contact with a sick individual or change in routine. Has not recently been camping or on antibiotics. The illness is described as severe. REVIEW OF SYSTEMS The patient has had fever and chills and experienced sweats. No calf pain, chest pain, cough, difficulty breathing or pedal edema. No palpitations or urinary problems. All systems otherwise negative, except as recorded above. PAST HISTORY Problems: Sprain. Bipolar Disorder. Pharyngitis. Abscess. Strep Throat. COPD - Chronic Obstructive Pulmonary Disease. Flank Pain. Bladder infection . Viral Disease. Lifestyle / Substance Problems. Epistaxis. Ankles. Abdominal Pain. Vomiting. Back Pain. Back Injury. Sinusitis. Sinus Problems. Mechanism of Injury. Dental Caries. Dental Pain. Depression. Additional Surgeries: Coccyx. Dilatation & Curettage. Foot. Tonsillectomy. Tubal Ligation. Medications: Sertraline HCl Oral 100 mg, daily. Albuterol Sulfate HFA Inhalation. LamoTRIgine Oral (Tablet Dispersible 200 mg) 1 tablet, day . TraZODone HCl Oral 50 mg, at bedtime. Wellbutrin Oral (Tablet 100 mg) 1 tablet, 2x a day. Allergies: Dilaudid. OxyCODONE HCl. SOCIAL HISTORY Current every day heavy tobacco smoker (cigarette)- 1 pack per day. History of drug use daily: marijuana. No alcohol use. FAMILY HISTORY Diabetes in first-degree relative (sibling); cancer in first-degree relative (mother and father). ADDITIONAL NOTES The nursing notes have been reviewed. PHYSICAL EXAM Vital Signs: 12/31/2016 02:11 BP: 130/85. HR: 80. RR: 17. O2 saturation: 98%. Temp: 98.3 F. Pain level now: 6/10. Have been reviewed. Appearance: Alert. Eyes: Pupils equal, round and reactive to light. ENT: Pharynx normal. Neck: Normal inspection. Neck supple. CVS: Normal heart rate and rhythm. Heart sounds normal. Respiratory: No respiratory distress. Decreased air movement. No rales, rhonchi or wheezes. Abdomen: Soft and nontender. Bowel sounds normal. No organomegaly. No mass. Back: Normal inspection. No CVA tenderness. Skin: Skin warm and dry. Normal skin color. Normal skin turgor. Extremities: Extremities exhibit normal ROM. No lower extremity edema. LABS, X-RAYS, AND EKG Laboratory Tests: UA-Culture if indicated: (CHIDI: 12/31/2016 02:15) ( MsgRcvd 12/31/2016 02:26) Final results Test Result Flag Units (Reference) URINE COLOR YELLOW URINE APPEARANCE CLEAR URINE GLUCOSE NEGATIVE (NEGATIVE) URINE BILIRUBIN 1+ (NEGATIVE) URINE KETONE NEGATIVE (NEGATIVE) URINE SPECIFIC GRAVITY >= 1.030 (1.010-1.030) URINE PH 6.0 (5.0-8.0) URINE PROTEIN 3+ (NEGATIVE) URINE UROBILINOGEN 1.0 EU/dL (0.2-1.0) URINE NITRITE NEGATIVE (NEGATIVE) URINE BLOOD 3+ (NEGATIVE) URINE LEUK ESTERASE NEGATIVE (NEGATIVE) URINE RBC 3-5 rbc/hpf (0-1) URINE WBC 0-1 wbc/hpf (0-1) URINE EPITHELIAL CELLS 1-3 EPI/hpf (0-5) URINE BACTERIA TRACE (<1+) (NONE SEEN) URINE COMMENT CULT NOT INDICATED URINE CULTURES ARE SET-UP BASED ON THE FOLLOWING CRITERIA:POSITIVE NITRITEPOSITIVE LEUKOCYTE ESTERASEGREATER THAN 10 WHITE BLOOD CELLSMODERATE (2+) OR GREATER BACTERIA Urine: (CHIDI: 12/31/2016 02:15) ( MsgRcvd 12/31/2016 02:23) Final results Test Result Flag Units (Reference) URINE NEGATIVE CBC w Diff: (CHIDI: 12/31/2016 02:15) ( [facility] 12/31/2016 02:23) Final results Test Result Flag Units (Reference) WHITE BLOOD COUNT 11.3 K/uL (4.5-11.5) RED BLOOD COUNT 4.88 M/uL (4.00-5.20) HEMOGLOBIN 15.1 gm/dL (12.0-16.0) HEMATOCRIT 45.3 % (36.0-46.0) MEAN CELL VOLUME 93 fL (80-100) MEAN CORPUSCULAR HGB 31 pg (26-34) MEAN CORPUSCULAR HGB CONC 33 g/dL (31-37) RED CELL DISTRIBUTION WIDTH 13.7 % (11.6-14.8) PLATELET COUNT 255 K/uL (150-400) NEUTROPHIL % 79.2 H % (50-75) LYMPH % 16.0 L % (25-40) MONO % 4.2 % (3-14) EOSINOPHIL % 0 % (0-4) BASOPHIL % 0.6 % (0-2) CMP: (CHIDI: 12/31/2016 02:15) ( [facility] 12/31/2016 02:38) Final results Test Result Flag Units (Reference) GLUCOSE 177 H mg/dL (70-110) BUN 19 H mg/dL (7-18) CREATININE 1.1 mg/dL (0.6-1.3) Estimated GFR 53.67 mL/min Estimated GFR- >60 mL/min Note: Persistent reduction over 3 months in eGFR<60 mL/min/1.73 m2 defines CKD. Patients with eGFR values>=60 mL/min/1.73 m2 may also have CKD if evidence ofpersistent proteinuria. Additional information may be foundat [email or web address].org. SODIUM 135 L mmol/L (136-145) POTASSIUM 3.2 L mmol/L (3.5-5.1) CHLORIDE 97 L mmol/L (98-107) CARBON DIOXIDE 25 mmol/L (21-32) CALCIUM 9.3 mg/dL (8.5-10.1) TOTAL PROTEIN 8.6 H g/dL (6.4-8.2) ALBUMIN 3.9 g/dL (3.3-5.0) BILIRUBIN, TOTAL 0.4 mg/dL (0.0-1.0) ALKALINE PHOSPHATASE 129 H U/L (46-116) AST (SGOT) 75 H U/L (15-37) ALT (SGPT) 71 U/L (12-78) LIPASE 95 U/L (73-393) AMYLASE 77 U/L (25-115) . PROGRESS AND PROCEDURES Course of Care: Patient is stable. Patient/family counseled. Old medical records reviewed. (she has had a chronic persistent elevation of her alkaline phosphatase.). Disposition: Discharged. Condition: stable. CLINICAL IMPRESSION Microscopic hematuria Viral gastroenteritis. INSTRUCTIONS No driving or operating machinery while taking medication. Sedative medication was given during your visit. Drink plenty of fluids. Warnings: Further evaluation is necessary. GENERAL WARNINGS: Return or contact your physician immediately if your condition worsens or changes unexpectedly, if not improving as expected, or if other problems arise. Your Current Medications: CONTINUE TAKING THE FOLLOWING MEDICATIONS: Albuterol Sulfate HFA Inhalation. LamoTRIgine Oral : Tablet Dispersible 200 mg, 1 tablet day. Sertraline HCl Oral : 100 mg daily. TraZODone HCl Oral : 50 mg at bedtime. Wellbutrin Oral : Tablet 100 mg, 1 tablet 2x a day. Prescription Medications: Zofran 4 mg: Take 1 orally every six hours as needed for nausea/vomiting. Dispense ten (10). No refills. Substitution is permissible. Understanding of the discharge instructions verbalized by patient. Follow-up with: [facility], [facility], , [address] [place] [address], [place] [address] Follow up today. Call for an appointment. (Electronically signed by Ronny Norman MD 12/31/2016 21:37)
--- NOTE | 2016-12-31 03:43 | ED NURSING NOTES ---
Clinical Report - Nurses [facility] [address] [place] [address] 12/31/2016 1:59 Patient: JEFF SOTO TRIAGE Triage time 02:05. Acuity: LEVEL 3. Chief Complaint: ABDOMINAL PAIN, NAUSEA and VOMITING. 02:14. Alert. SEPSIS SCREEN: Sepsis Screen. Negative (no infection suspected/documented). --02:14 Scott Alatorre R.N. 02:11 12/31/16. BP: 130/85. HR: 80. RR: 17. O2 saturation: 98%. Temp: 98.3 F (oral). Pain level now: 01/10. --02:14 Scott Alatorre R.N. Weight: 52.6 kg stated. Height/Length: 62 inches Per Patient. BMI: 21.2. --02:12 Scott Alatorre R.N. Medications Albuterol Sulfate HFA Inhalation. LamoTRIgine Oral (Tablet Dispersible 200 mg) 1 tablet, day . TraZODone HCl Oral 50 mg, at bedtime. Wellbutrin Oral (Tablet 100 mg) 1 tablet, 2x a day. --02:09 Scott Alatorre R.N. Sertraline HCl Oral 100 mg, daily. --02:10 Scott Alatorre R.N. Medication/allergy information source: the patient. --02:14 Scott Alatorre R.N. Allergies Dilaudid. OxyCODONE HCl. --02:10 Scott Alatorre R.N. History Arrived by private vehicle. Historian: patient. Unaccompanied. Primary physician (). This started yesterday. Treatment INTERNAL CONTROL CONSULTANT: None. PAST MEDICAL HX: Immunizations: up-to-date. The patient is post-menopausal. SOCIAL HX: Current every day heavy tobacco smoker- 1 pack per day. Occasional alcohol use. Patient is a longstanding alcoholic. History of drug use: marijuana. (daily). No recent travel. No infectious disease exposure. ABUSE ASSESSMENT: No report of abuse. FALL RISK ASSESSMENT: Fall risk assessment completed. No fall risk identified. NUTRITIONAL RISK ASSESSMENT: The nutritional risk assessment revealed no deficiencies. FUNCTIONAL ASSESSMENT: Functional assessment: no impairments noted. LEARNING NEEDS ASSESSMENT: The learning needs assessment revealed no barriers. SKIN INTEGRITY ASSESSMENT: Skin integrity risk assessment completed. No skin integrity risk identified. --02:14 Scott Alatorre R.N. PROBLEMS: Bipolar Disorder. COPD - Chronic Obstructive Pulmonary Disease. Bladder infection . Viral Disease. Lifestyle / Substance Problems. Epistaxis. Sinusitis. Dental Caries. Depression. --02:11 Scott Alatorre R.N. ADDITIONAL SURGERIES: Coccyx. Dilatation & Curettage. Foot. Tonsillectomy. Tubal Ligation. --02:11 Scott Alatorre R.N. Interventions ID band on patient. To treatment room. --02:14 Scott Alatorre R.N. PHYSICAL ASSESSMENT 02:15. Ambulatory to room. Patient gowned. GENERAL / NEURO / PSYCH: Alert. Oriented X 4. HEENT: Mucous membranes are pink. RESPIRATORY: Respirations not labored. SKIN: Skin is warm and dry. --02:15 Scott Alatorre R.N. NURSING PROGRESS NOTES 02:06 Patient in restroom obtaining urine sample. --02:06 Scott Alatorre R.N. 02:07. Patient ID band checked for patient name and birthdate: patient confirmed. Clean catch urine collected with return of yellow-colored olivier-colored clear urine; sample sent to lab for urinalysis. Specimen labeled in the presence of the patient. --02:07 Scott Alatorre R.N. 02:15. Head of bed elevated. Two patient identifiers checked. Call light placed in reach. Bed placed in lowest position. Brakes of bed on. Patient ready for evaluation- chart flagged. --02:15 Scott Alatorre R.N. 02:13 12/31/2016 Site #1 started via IV in the right antecubital space with an 20g angiocath, with aseptic technique and good blood return; one attempt. Blood drawn: rainbow set. Labeled in the presence of the patient and sent to the lab. Saline lock flushed with 10 mL saline. --02:16 Scott Alatorre R.N. ( Report received from Scott To RN). --02:23 Dio Zafar R.N. 02:21 12/31/2016 Zofran (Ondansetron HCl) IVP 4 mg given over 1 minute(s) via site #1. Allergies verified and confirmed 5 rights. IV patency established. IV site checked: no pain, redness, or swelling. IV flushed thoroughly pre- and post-medication administration. IVP given by RN. --02:23 Dio Zafar R.N. 02:12/31/2016 Started bag #1 1000 mL IV Fluids IV NS (Saline); at 1000 mL/hr over 1 hour(s) via site #1. Allergies verified and confirmed 5 rights. IV patency established. IV site checked: no pain, redness, or swelling. IV flushed thoroughly pre- and post-medication administration. Completed per protocol. --02: Dio Zafar R.N. 02:40 assisted pt to restroom. --02:40 Scott Alatorre R.N. 02:45. Patient ID band checked for patient name and birthdate: patient confirmed. Clean catch urine collected with return of yellow-colored olivier-colored clear urine; sample sent to lab for urinalysis. Specimen labeled in the presence of the patient. --02:46 Scott Alatorre R.N. ( Dr. Norman with patient). --03:01 Dio Zafar R.N. 03:19 12/31/2016 PROTONIX (Pantoprazole Sodium) IVP 40 mg given over 2 minute(s) via site #1. Allergies verified and confirmed 5 rights. IV patency established. IV site checked: no pain, redness, or swelling. IV flushed thoroughly pre- and post-medication administration. IVP given by RN. --03:23 Dio Zafar R.N. 03:12/31/2016 KCL (Potassium Chloride ER) PO Tablets 20 meq given. Allergies verified and confirmed 5 rights. --03:24 Dio Zafar R.N. 03:12/31/2016 PHENERGAN (Promethazine HCl) IVP 25 mg given over 2 minute(s) via site #1. IV patency established. IV site checked: no pain, redness, or swelling. IV flushed thoroughly pre- and post-medication administration. IVP given by RN. --03:24 Dio Zafar R.N. <<STRICKEN ENTRY-- 03:32 12/31/2016 Started bag #1 1000 mL IV Fluids IV NS (Saline); at 200 mL/hr over 4 hour(s) via site #1 via IV pump. Allergies verified and confirmed 5 rights. IV patency established. IV site checked: no pain, redness, or swelling. IV flushed thoroughly pre- and post-medication administration. --03:32 Dio Zafar R.N. --END STRIKE>> Correction. --05:13 Dio Zafar R.N. 03:54. The patient is calm and resting quietly. SKIN: Skin is warm and dry. Skin color within normal limits. --03:58 Scott Alatorre R.N. 03:32 12/31/2016 Started bag #2 1000 IV Fluids IV NS (Saline); at 200 mL/hr over 4 hour(s) via site #1 via IV pump. Allergies verified and confirmed 5 rights. IV patency established. IV site checked: no pain, redness, or swelling. IV flushed thoroughly pre- and post-medication administration. --05:13 Dio Zafar R.N. DISPOSITION / DISCHARGE 03:50 12/31/2016 IV Fluids IV NS Discontinued: bag #2 STOPPED upon discharge. Total amount infused: 50 mL. IV patency established. IV site checked: no pain, redness, or swelling. IV flushed thoroughly. --03:57 Scott Alatorre R.N. 03:51 12/31/2016 Site #1 removed upon discharge. Catheter intact. Bandage applied. --03:56 Scott Alatorre R.N. Departure time: 03:56. Condition at departure: stable. No learning barriers present. Discharge instructions provided and reviewed with health care facility administrator and the patient. Reviewed medication(s) side effects, precautions, dosing and course information. Prescription(s) given to the patient. Patient and health care facility administrator verbalized understanding. Written instructions provided in Lithuanian. The patient was discharged home and accompanied by health care facility administrator. She left the Emergency Department ambulatory and via private vehicle. Cover Marker driving. FALL RISK ASSESSMENT: Fall risk assessment completed. No fall risk identified. --03:58 Scott Alatorre R.N. 03:46 12/31/16. BP: 159/86. HR: 62. RR: 17. O2 saturation: 96%. --03:58 Scott Alatorre R.N. Locked/Released at 12/31/2016 5:14 by Scott Alatorre R.N.
--- NOTE | 2016-12-31 03:43 | ED NURSING NOTES ---
Clinical Report - Nurses [facility] [address] [place] [address] 12/31/2016 1:59 Patient: JEFF SOTO TRIAGE Triage time 02:05. Acuity: LEVEL 3. Chief Complaint: ABDOMINAL PAIN, NAUSEA and VOMITING. 02:14. Alert. SEPSIS SCREEN: Sepsis Screen. Negative (no infection suspected/documented). --02:14 Scott Alatorre R.N. 02:11 12/31/16. BP: 130/85. HR: 80. RR: 17. O2 saturation: 98%. Temp: 98.3 F (oral). Pain level now: 01/10. --02:14 Scott Alatorre R.N. Weight: 52.6 kg stated. Height/Length: 62 inches Per Patient. BMI: 21.2. --02:12 Scott Alatorre R.N. Medications Albuterol Sulfate HFA Inhalation. LamoTRIgine Oral (Tablet Dispersible 200 mg) 1 tablet, day . TraZODone HCl Oral 50 mg, at bedtime. Wellbutrin Oral (Tablet 100 mg) 1 tablet, 2x a day. --02:09 Scott Alatorre R.N. Sertraline HCl Oral 100 mg, daily. --02:10 Scott Alatorre R.N. Medication/allergy information source: the patient. --02:14 Scott Alatorre R.N. Allergies Dilaudid. OxyCODONE HCl. --02:10 Scott Alatorre R.N. History Arrived by private vehicle. Historian: patient. Unaccompanied. Primary physician (). This started yesterday. Treatment MAT WEAVER: None. PAST MEDICAL HX: Immunizations: up-to-date. The patient is post-menopausal. SOCIAL HX: Current every day heavy tobacco smoker- 1 pack per day. Occasional alcohol use. Patient is a longstanding alcoholic. History of drug use: marijuana. (daily). No recent travel. No infectious disease exposure. ABUSE ASSESSMENT: No report of abuse. FALL RISK ASSESSMENT: Fall risk assessment completed. No fall risk identified. NUTRITIONAL RISK ASSESSMENT: The nutritional risk assessment revealed no deficiencies. FUNCTIONAL ASSESSMENT: Functional assessment: no impairments noted. LEARNING NEEDS ASSESSMENT: The learning needs assessment revealed no barriers. SKIN INTEGRITY ASSESSMENT: Skin integrity risk assessment completed. No skin integrity risk identified. --02:14 Scott Alatorre R.N. PROBLEMS: Bipolar Disorder. COPD - Chronic Obstructive Pulmonary Disease. Bladder infection . Viral Disease. Lifestyle / Substance Problems. Epistaxis. Sinusitis. Dental Caries. Depression. --02:11 Scott Alatorre R.N. ADDITIONAL SURGERIES: Coccyx. Dilatation & Curettage. Foot. Tonsillectomy. Tubal Ligation. --02:11 Scott Alatorre R.N. Interventions ID band on patient. To treatment room. --02:14 Scott Alatorre R.N. PHYSICAL ASSESSMENT 02:15. Ambulatory to room. Patient gowned. GENERAL / NEURO / PSYCH: Alert. Oriented X 4. HEENT: Mucous membranes are pink. RESPIRATORY: Respirations not labored. SKIN: Skin is warm and dry. --02:15 Scott Alatorre R.N. NURSING PROGRESS NOTES 02:06 Patient in restroom obtaining urine sample. --02:06 Scott Alatorre R.N. 02:07. Patient ID band checked for patient name and birthdate: patient confirmed. Clean catch urine collected with return of yellow-colored olivier-colored clear urine; sample sent to lab for urinalysis. Specimen labeled in the presence of the patient. --02:07 Scott Alatorre R.N. 02:15. Head of bed elevated. Two patient identifiers checked. Call light placed in reach. Bed placed in lowest position. Brakes of bed on. Patient ready for evaluation- chart flagged. --02:15 Scott Alatorre R.N. 02:13 12/31/2016 Site #1 started via IV in the right antecubital space with an 20g angiocath, with aseptic technique and good blood return; one attempt. Blood drawn: rainbow set. Labeled in the presence of the patient and sent to the lab. Saline lock flushed with 10 mL saline. --02:16 Scott Alatorre R.N. ( Report received from Scott To RN). --02:23 Dio Zafar R.N. 02:21 12/31/2016 Zofran (Ondansetron HCl) IVP 4 mg given over 1 minute(s) via site #1. Allergies verified and confirmed 5 rights. IV patency established. IV site checked: no pain, redness, or swelling. IV flushed thoroughly pre- and post-medication administration. IVP given by RN. --02:23 Dio Zafar R.N. 02:12/31/2016 Started bag #1 1000 mL IV Fluids IV NS (Saline); at 1000 mL/hr over 1 hour(s) via site #1. Allergies verified and confirmed 5 rights. IV patency established. IV site checked: no pain, redness, or swelling. IV flushed thoroughly pre- and post-medication administration. Completed per protocol. --02: Dio Zafar R.N. 02:40 assisted pt to restroom. --02:40 Scott Alatorre R.N. 02:45. Patient ID band checked for patient name and birthdate: patient confirmed. Clean catch urine collected with return of yellow-colored olivier-colored clear urine; sample sent to lab for urinalysis. Specimen labeled in the presence of the patient. --02:46 Scott Alatorre R.N. ( Dr. Norman with patient). --03:01 Dio Zafar R.N. 03:19 12/31/2016 PROTONIX (Pantoprazole Sodium) IVP 40 mg given over 2 minute(s) via site #1. Allergies verified and confirmed 5 rights. IV patency established. IV site checked: no pain, redness, or swelling. IV flushed thoroughly pre- and post-medication administration. IVP given by RN. --03:23 Dio Zafar R.N. 03:12/31/2016 KCL (Potassium Chloride ER) PO Tablets 20 meq given. Allergies verified and confirmed 5 rights. --03:24 Dio Zafar R.N. 03:12/31/2016 PHENERGAN (Promethazine HCl) IVP 25 mg given over 2 minute(s) via site #1. IV patency established. IV site checked: no pain, redness, or swelling. IV flushed thoroughly pre- and post-medication administration. IVP given by RN. --03:24 Dio Zafar R.N. <<STRICKEN ENTRY-- 03:32 12/31/2016 Started bag #1 1000 mL IV Fluids IV NS (Saline); at 200 mL/hr over 4 hour(s) via site #1 via IV pump. Allergies verified and confirmed 5 rights. IV patency established. IV site checked: no pain, redness, or swelling. IV flushed thoroughly pre- and post-medication administration. --03:32 Dio Zafar R.N. --END STRIKE>> Correction. --05:13 Dio Zafar R.N. 03:54. The patient is calm and resting quietly. SKIN: Skin is warm and dry. Skin color within normal limits. --03:58 Scott Alatorre R.N. 03:32 12/31/2016 Started bag #2 1000 IV Fluids IV NS (Saline); at 200 mL/hr over 4 hour(s) via site #1 via IV pump. Allergies verified and confirmed 5 rights. IV patency established. IV site checked: no pain, redness, or swelling. IV flushed thoroughly pre- and post-medication administration. --05:13 Dio Zafar R.N. DISPOSITION / DISCHARGE 03:50 12/31/2016 IV Fluids IV NS Discontinued: bag #2 STOPPED upon discharge. Total amount infused: 50 mL. IV patency established. IV site checked: no pain, redness, or swelling. IV flushed thoroughly. --03:57 Scott Alatorre R.N. 03:51 12/31/2016 Site #1 removed upon discharge. Catheter intact. Bandage applied. --03:56 Scott Alatorre R.N. Departure time: 03:56. Condition at departure: stable. No learning barriers present. Discharge instructions provided and reviewed with case resolution specialist and the patient. Reviewed medication(s) side effects, precautions, dosing and course information. Prescription(s) given to the patient. Patient and case resolution specialist verbalized understanding. Written instructions provided in Pakistani. The patient was discharged home and accompanied by case resolution specialist. She left the Emergency Department ambulatory and via private vehicle. Mandrel Press Hand driving. FALL RISK ASSESSMENT: Fall risk assessment completed. No fall risk identified. --03:58 Scott Alatorre R.N. 03:46 12/31/16. BP: 159/86. HR: 62. RR: 17. O2 saturation: 96%. --03:58 Scott Alatorre R.N. Locked/Released at 12/31/2016 5:14 by Scott Alatorre R.N.
--- NOTE | 2016-12-31 21:37 | ED DISCHARGE INSTRUCTIONS ---
Patient: JEFF SOTO General Instructions [facility] VisitID: [id number] [place] [address] 61y, F Registration Date/Time: 12/31/2016 Microscopic hematuria Viral gastroenteritis. INSTRUCTIONS No driving or operating machinery while taking medication. Sedative medication was given during your visit. Drink plenty of fluids. Warnings: Further evaluation is necessary. GENERAL WARNINGS: Return or contact your physician immediately if your condition worsens or changes unexpectedly, if not improving as expected, or if other problems arise. Your Current Medications: CONTINUE TAKING THE FOLLOWING MEDICATIONS: Albuterol Sulfate HFA Inhalation. LamoTRIgine Oral : Tablet Dispersible 200 mg, 1 tablet day. Sertraline HCl Oral : 100 mg daily. TraZODone HCl Oral : 50 mg at bedtime. Wellbutrin Oral : Tablet 100 mg, 1 tablet 2x a day. Prescription Medications: Zofran 4 mg: Take 1 orally every six hours as needed for nausea/vomiting. Dispense ten (10). No refills. Substitution is permissible. Understanding of the discharge instructions verbalized by patient. Follow-up with: [facility], [facility], , [address] [place] [address], [place] [address] Follow up today. Call for an appointment. ADDITIONAL INFORMATION Viral Gastroenteritis (6Yr-Adult) Gastroenteritis is another name for thestomach flu.It is most often caused by a virus that affects the stomach and intestinal tract. Symptoms include stomach cramping and fever, vomiting and/or diarrhea, and can last from 2 to 7 days. The danger from repeated vomiting or diarrhea is dehydration. This is the loss of too much water and minerals from the body. When this occurs, body fluids must be replaced. Antibiotics are not effective for this illness, but simple home treatment will be helpful. Home Care If symptoms are severe, rest at home for the next 24 hours. Avoid tobacco, caffeine, and alcohol use, which can worsen symptoms. Acetaminophen (Tylenol) or ibuprofen (Motrin, Advil) may be usedfor fever or pain unless another medication was prescribed. NOTE: If you have chronic liver or kidney disease or ever had a stomach ulcer or GI bleeding, talk with your doctor before using these medicines. Aspirin should never be used in anyone under 18 years of age who is ill with a fever. It may cause severe liver damage. If medicines for diarrhea or vomiting were prescribed, be sure they are takenonly as directed. If vomiting, drink small amounts of clear fluids (such as water, sports drinks, clear sodas) at frequent intervals to prevent dehydration. Start with 1 to 2 tablespoons every 10 minutes. Once vomiting stops, follow these guidelines: During The First 12 To 24 Hours follow the diet below: Beverages: Sport drinks like Gatorade, soft drinks without caffeine; khushi marah, mineral water (plain or flavored), decaffeinated tea and coffee. Soups: Clear broth, consomm and bouillon Desserts: Plain gelatin (Jell-O), Popsicles and fruit juice bars. During The Next 24 Hours you may add the following to the above: Hot cereal, plain toast, bread, rolls, crackers Plain noodles, rice, mashed potatoes, chicken noodle or rice soup Unsweetened canned fruit (avoid pineapple), bananas Limit fat intake to less than 15 grams per day by avoiding margarine, butter, oils, mayonnaise, sauces, gravies, fried foods, peanut butter, meat, poultry, and fish. Limit fiber; avoid raw or cooked vegetables, fresh fruits (except bananas), and bran cereals. Limit caffeine and chocolate. Do not use spices or seasonings except salt. During The Next 24 Hours The patient can gradually resume a normal diet as symptoms lessen. Preventing Spread Hand washing with soap and water is the best way to prevent the spread of viruses. Caregivers should wash their hands before andafter touching the sick person. The sick person, as well as everyone in the family,should wash their hands after using the toilet and before meals. Clean the toilet after each use. People with diarrhea should not prepare food for others. If you are preparing your own foods, wash your hands before and after. Follow Up with your doctor as advised. Call your doctor if you are not improving over the next 2 to 3 days. If a stool (diarrhea) sample was taken, you may call in 2 days (or as directed) for the results. Get Prompt Medical Attention if any of the following occur: Increasing abdominal pain Continued vomiting (unable to keep liquids down) Frequent diarrhea (more than 5 times a day) Blood in vomit or stool (black or red color) Dark urine, reduced urine output, or extreme thirst Weakness, dizziness, fainting Drowsiness, confusion, stiff neck, or seizure Fever of 100.4F (38C) oral or higher, not better with fever medication New rash Blood In The Urine Blood in the urine ("hematuria") has many possible causes. If it occurs after an injury (such as a car accident or fall), it is most often a sign of bruising to the kidney or bladder. Common medical causes of blood in the urine include urinary tract infection, kidney stone, inflammation, tumors, or certain other diseases of the kidney or bladder. Menstruation can cause blood to appear in the urine sample, although it is not coming from the urinary tract. If only a trace amount of blood is present, it will show up on the urine test, even though the urine may be yellow and not pink or red. This may occur with any of the above conditions, as well as heavy exercise or high fever. In this case, your doctor may want to repeat the urine test on another day. This will show if the blood is still present. If so, then other tests can be done to find out the cause. Home Care: If your urine does not appear bloody (pink, brown or red) then you do not need to restrict your activity in any way. If you can see blood in your urine, rest and avoid heavy exertion until your next exam. Do not use aspirin or anti-inflammatory medicine like ibuprofen (Motrin, Advil) or naproxen (Naprosyn, Aleve). These thin the blood and may increase bleeding. Follow Up with your doctor or as advised by our staff. If you were injured and had blood in your urine, you should have a repeat urine test in 1-2 days. Contact your doctor or return to this facility for this test. [NOTE: A radiologist will review any X-rays that were taken. We will notify you of any new findings that may affect your care.] Get Prompt Medical Attention if any of the following occur: Bright red blood or blood clots in the urine (if a new symptom) Weakness, dizziness or fainting New groin, abdominal or back pain Fever of 100.4F (38C) or higher, or as directed by your healthcare provider Repeated vomiting Bleeding from nose, gums or easy bruising Ondansetron Oral disintegrating tablet What is this medicine? ONDANSETRON (on KOURTNEY se magalis) is used to treat nausea and vomiting caused by chemotherapy. It is also used to prevent or treat nausea and vomiting after surgery. How should I use this medicine? These tablets are made to dissolve in the mouth. Do not try to push the tablet through the foil backing. With dry hands, peel away the foil backing and gently remove the tablet. Place the tablet in the mouth and allow it to dissolve, then swallow. While you may take these tablets with water, it is not necessary to do so. Talk to your cleat layer regarding the use of this medicine in children. Special care may be needed. What side effects may I notice from receiving this medicine? Side effects that you should report to your doctor or health continuum of care manager as soon as possible: allergic reactions like skin rash, itching or hives, swelling of the face, lips, or tongue breathing problems dizziness fast or irregular heartbeat feeling faint or lightheaded, falls fever and chills swelling of the hands and feet tightness in the chest Side effects that usually do not require medical attention (report to your doctor or health continuum of care manager if they continue or are bothersome): constipation or diarrhea headache What may interact with this medicine? Do not take this medicine with any of the following medications: -apomorphine -cisapride -dofetilide -dronedarone -pimozide -thioridazine -ziprasidone This medicine may also interact with the following medications: -carbamazepine -phenytoin -rifampicin -tramadol -other medicines that prolong the QT interval (cause an abnormal heart rhythm) What if I miss a dose? If you miss a dose, take it as soon as you can. If it is almost time for your next dose, take only that dose. Do not take double or extra doses. Where should I keep my medicine? Keep out of the reach of children. Store between 2 and 30 degrees C (36 and 86 degrees F). Throw away any unused medicine after the expiration date. What should I tell my health care provider before I take this medicine? They need to know if you have any of these conditions: heart disease history of irregular heartbeat liver disease low levels of magnesium or potassium in the blood an unusual or allergic reaction to ondansetron, granisetron, other medicines, foods, dyes, or preservatives or trying to get breast-feeding What should I watch for while using this medicine? Check with your doctor or health continuum of care manager as soon as you can if you have any sign of an allergic reaction. You have been given the following additional information: Gastroenteritis, Viral (6Y-Adult) Hematuria Ondansetron Oral disintegrating tablet No driving or operating machinery while taking medication. Sedative medication was given during your visit. (Electronically signed by Ronny Norman MD 12/31/2016 21:37)
--- NOTE | 2016-12-31 21:37 | ED MAR SUMMARY ---
..... Medication Administration Record [facility] [address] [place] [place] [address] Patient: JEFF SOTO Visit ID: [id number] 61y, F Weight: 52.6 kg Height/Length: 62 in BMI: 21.2 ALLERGIES: Dilaudid, OxyCODONE HCl Given 02:12/31/2016 Dio Zafar R.N. Medication Administered: ZOFRAN [IVP] (ONDANSETRON HCL), Dose: 4 mg IVP over 1 minute(s), Site: #1 right AC. Medication Ordered: Zofran IV 4 mg (NOW). Start 02:23 12/31/2016 Dio Zafar R.N. Medication Administered: IV NS (SALINE), Dose: IV Fluids over 1 hour(s), Rate: 1000 mL/hr, Dispensed: 1000 mL bag, Site: #1 right AC. Medication Ordered: IV NS : initial bolus 1000 mL (1000 mL/hr), then 200 mL/hr for 4h (NOW); Urgent. Given 03:12/31/2016 Dio Zafar R.N. Medication Administered: PROTONIX [IVP] (PANTOPRAZOLE SODIUM), Dose: 40 mg IVP over 2 minute(s), Site: #1 right AC. Medication Ordered: Protonix IVP 40mg 40 mg (Mix in NS 10ml over 2min). Given 03:12/31/2016 Dio Zafar R.N. Medication Administered: PHENERGAN [IVP] (PROMETHAZINE HCL), Dose: 25 mg IVP over 2 minute(s), Site: #1 right AC. Medication Ordered: Phenergan IV 25 mg (NOW). Given 03:19 12/31/2016 Dio Zafar R.N. Medication Administered: KCL [PO] (POTASSIUM CHLORIDE ER), Dose: 20 meq Tablets PO. Medication Ordered: KCl PO 20 meq (NOW). Start 03:32 12/31/2016 Dio Zafar R.N., Stop 03:50 12/31/2016 Scott Alatorre R.N. Medication Administered: IV NS (SALINE), Dose: IV Fluids over 4 hour(s), Rate: 200 mL/hr, Dispensed: 1000 mL bag, Site: #1 right AC. Medication Ordered: IV NS : initial bolus 1000 mL (1000 mL/hr), then 200 mL/hr for 4h (NOW); Urgent.
--- NOTE | 2016-12-31 21:37 | ED MAR SUMMARY ---
..... Medication Administration Record [facility] [address] [place] [address] Patient: JEFF SOTO Visit ID: [id number] 61y, F Weight: 52.6 kg Height/Length: 62 in BMI: 21.2 ALLERGIES: Dilaudid, OxyCODONE HCl Given 02:12/31/2016 Dio Zafar R.N. Medication Administered: ZOFRAN [IVP] (ONDANSETRON HCL), Dose: 4 mg IVP over 1 minute(s), Site: #1 right AC. Medication Ordered: Zofran IV 4 mg (NOW). Start 02:23 12/31/2016 Dio Zafar R.N. Medication Administered: IV NS (SALINE), Dose: IV Fluids over 1 hour(s), Rate: 1000 mL/hr, Dispensed: 1000 mL bag, Site: #1 right AC. Medication Ordered: IV NS : initial bolus 1000 mL (1000 mL/hr), then 200 mL/hr for 4h (NOW); Urgent. Given 03:12/31/2016 Dio Zafar R.N. Medication Administered: PROTONIX [IVP] (PANTOPRAZOLE SODIUM), Dose: 40 mg IVP over 2 minute(s), Site: #1 right AC. Medication Ordered: Protonix IVP 40mg 40 mg (Mix in NS 10ml over 2min). Given 03:12/31/2016 Dio Zafar R.N. Medication Administered: PHENERGAN [IVP] (PROMETHAZINE HCL), Dose: 25 mg IVP over 2 minute(s), Site: #1 right AC. Medication Ordered: Phenergan IV 25 mg (NOW). Given 03:19 12/31/2016 Dio Zafar R.N. Medication Administered: KCL [PO] (POTASSIUM CHLORIDE ER), Dose: 20 meq Tablets PO. Medication Ordered: KCl PO 20 meq (NOW). Start 03:32 12/31/2016 Dio Zafar R.N., Stop 03:50 12/31/2016 Scott Alatorre R.N. Medication Administered: IV NS (SALINE), Dose: IV Fluids over 4 hour(s), Rate: 200 mL/hr, Dispensed: 1000 mL bag, Site: #1 right AC. Medication Ordered: IV NS : initial bolus 1000 mL (1000 mL/hr), then 200 mL/hr for 4h (NOW); Urgent.
--- NOTE | 2016-12-31 21:38 | ED MED RECONCILIATION SUMMARY ---
Patient: JEFF SOTO Medication Reconciliation Report [facility] VisitID: [id number] [place] [address] 61y, F Registration Date/Time: 12/31/2016 Weight: 52.6 kg Height/Length: 62 in. BMI: 21.2 ALLERGIES: Dilaudid, OxyCODONE HCl The patient's Home Medications are listed below: CONTINUE TAKING THE FOLLOWING MEDICATIONS: Albuterol Sulfate HFA Inhalation LamoTRIgine Oral (200 mg) 1 tablet, day Sertraline HCl Oral 100 mg, daily TraZODone HCl Oral 50 mg, at bedtime Wellbutrin Oral (100 mg) 1 tablet, 2x a day The source(s) of the original Home Medication information: patient The following Medications were given to the patient in the Emergency Department: IV NS IV Fluids bolus 0, then 1000 mL/hr, administered: 12/31/2016 2:23:00 AM Zofran [IVP] IVP 4 mg, administered: 12/31/2016 2:21:00 AM PROTONIX [IVP] IVP 40 mg, administered: 12/31/2016 3:19:00 AM KCL [PO] PO 20 meq, administered: 12/31/2016 3:19:00 AM PHENERGAN [IVP] IVP 25 mg, administered: 12/31/2016 3:19:00 AM IV NS IV Fluids bolus 0, then 200 mL/hr, administered: 12/31/2016 3:32:00 AM The following Medications were prescribed to the patient: Zofran 4 mg: Take 1 orally every six hours as needed for nausea/vomiting. Dispense ten (10). No refills. Substitution is permissible. -- Ronny Norman MD
--- NOTE | 2016-12-31 21:38 | ED MED RECONCILIATION SUMMARY ---
Patient: JEFF SOTO Medication Reconciliation Report [facility] VisitID: [id number] [place] [address] 61y, F Registration Date/Time: 12/31/2016 Weight: 52.6 kg Height/Length: 62 in. BMI: 21.2 ALLERGIES: Dilaudid, OxyCODONE HCl The patient's Home Medications are listed below: CONTINUE TAKING THE FOLLOWING MEDICATIONS: Albuterol Sulfate HFA Inhalation LamoTRIgine Oral (200 mg) 1 tablet, day Sertraline HCl Oral 100 mg, daily TraZODone HCl Oral 50 mg, at bedtime Wellbutrin Oral (100 mg) 1 tablet, 2x a day The source(s) of the original Home Medication information: patient The following Medications were given to the patient in the Emergency Department: IV NS IV Fluids bolus 0, then 1000 mL/hr, administered: 12/31/2016 2:23:00 AM Zofran [IVP] IVP 4 mg, administered: 12/31/2016 2:21:00 AM PROTONIX [IVP] IVP 40 mg, administered: 12/31/2016 3:19:00 AM KCL [PO] PO 20 meq, administered: 12/31/2016 3:19:00 AM PHENERGAN [IVP] IVP 25 mg, administered: 12/31/2016 3:19:00 AM IV NS IV Fluids bolus 0, then 200 mL/hr, administered: 12/31/2016 3:32:00 AM The following Medications were prescribed to the patient: Zofran 4 mg: Take 1 orally every six hours as needed for nausea/vomiting. Dispense ten (10). No refills. Substitution is permissible. -- Ronny Norman MD
== END 2016-12-31 03:56 | disposition home or self-care (01) ==
LOC: ED SRH 02:00
DX: A08.4 Viral intestinal infection, unspecified (principal); R31.29 Other microscopic hematuria; J44.9 Chronic obstructive pulmonary disease, unspecified; Z79.51 Long term (current) use of inhaled steroids; Z79.899 Other long term (current) drug therapy; Z88.5 Allergy status to narcotic agent
CPT/HCPCS: 90004; 90100; 92235; 92530; 93070; 95059

== ENCOUNTER 2017-01-09 04:14 | Emergency (ER) | payer OTHER ==
--- NOTE | 2017-01-09 07:04 | DIAGNOSTIC IMAGING REPORT ---
PROCEDURE: XR ANKLE 3 OR 4 VIEWS - LEFT INDICATION: TRAUMA/INJURY TECHNIQUE: Four views. COMPARISON: Left ankle x-ray 12/02/2016. FINDINGS: Osseous structures, joint spaces and soft tissues are normal. Ankle mortise is normal. IMPRESSION: 1. Normal left ankle.
--- NOTE | 2017-01-09 07:10 | DIAGNOSTIC IMAGING REPORT ---
PROCEDURE: XR FOOT 3 VIEWS - LEFT INDICATION: TRAUMA/INJURY TECHNIQUE: Three views. COMPARISON: Left foot x-ray 07/02/2016. FINDINGS: No fracture dislocation. Mild degenerative changes of the midfoot. Soft tissues are unremarkable. IMPRESSION: 1. No acute changes 2. Mild midfoot osteoarthritic changes.
--- NOTE | 2017-01-09 07:25 | ED ORDER SUMMARY ---
..... Patient: JEFF SOTO OrderSheet [facility] VisitID: [id number] [address] [place] [address] 61y, F Registration Date/Time: 01/09/2017 ORDER SHEET Weight: 52.1 kg (stated) Allergies: Dilaudid, OxyCODONE HCl GENERAL ORDERS: Foot 3V Left Urgent (05:24 01/09/2017 Loren MAIN) (Ack 5:26 LMuller) (5:41 GUnbret) Ankle 3 or 4V Left Urgent (05:25 01/09/2017 [facility] MA[facility]) (Ack 5:27 LMuller) (5:41 Micha) Urine Drug Screen Urgent (05:01/09/2017 Loren [facility]) (Ack 5:30 LMuller) (5:51 CHernandez R.N.) POC Glucose (05:01/09/2017 Loren [facility]IN) (Ack 5:34 CHernandez R.N.) (5:38 CHernandez R.N.) MEDICATION ORDERS: IV FLUIDS: ORDER SHEET NOTES: [Electronically signed by Brodie Sadler R.N. (17:49 01/09/2017)] [Electronically signed by Aren Reyes MD (16:16 01/12/2017)] [Electronically locked/signed by Brodie Sadler R.N. (17:49 01/09/2017)]
--- NOTE | 2017-01-09 07:25 | ED CLINICAL REPORT ---
Clinical Report - Physicians/Mid Levels [facility] [address] [place] [address] 01/09/2017 4:14 Patient: JEFF SOTO Time Seen: 05:00. Arrived- By ambulance. Historian- patient. HISTORY OF PRESENT ILLNESS Chief Complaint: Injury to the left foot and left ankle. The injury happened just prior to arrival. The patient sustained a twisting injury. ([employer]). ( Pt was running in the [employer]. Twisted her foot and ankle). Patient is experiencing mild pain. No other injury. REVIEW OF SYSTEMS The patient complains of pain on weight bearing. No suspected foreign body or skin laceration. PAST HISTORY PCP: Rambo Ott Ops: L foot Fx. TA, BTL. PROBLEMS: Hematuria. Gastroenteritis. Sprain. Bipolar Disorder. Pharyngitis. Abscess. Strep Throat. COPD - Chronic Obstructive Pulmonary Disease. Flank Pain. Bladder infection . Viral Disease. Lifestyle / Substance Problems. Epistaxis. Ankles. Abdominal Pain. Vomiting. Back Pain. Back Injury. Sinusitis. Sinus Problems. Mechanism of Injury. Dental Caries. Immunizations. Dental Pain. LNMP - Last Normal Menstrual Period. Genital Lesion. Depressio. SOCIAL HISTORY Current every day smoker. ADDITIONAL NOTES The nursing notes have been reviewed. PHYSICAL EXAM Vital Signs: 01/09/2017 06:54 BP: 115/71. HR: 72. RR: 14. O2 saturation: 96%. Temp: 98.1 F. 01/09/2017 05:49 BP: 114/78. HR: 65. RR: 16. O2 saturation: 100%. Temp: 97.6 F. 01/09/2017 04:19 BP: 115/89. HR: 72. RR: 18. O2 saturation: 97%. Temp: 97.7 F. Pain level now: 9/10. Appearance: Alert. No acute distress. Head: Head atraumatic. Respiratory: No respiratory distress. Abdomen: Soft and nontender. Back: Normal inspection. No tenderness. Extremities: Left ankle: mild tenderness. Left foot: mild tenderness. Gait: Normal gait. Neuro, Vascular and Tendons: Vascular status intact. Sensation intact. Motor intact. Neuro: No alteration in mental status. Note: Pants are soaking wet from running in the [place]. LABS, X-RAYS, AND EKG X-Rays: Left foot negative. Left toe(s) negative. The X-rays were independently viewed by me. Note - Tests: (PROCEDURE: XR ANKLE 3 OR 4 VIEWS - LEFT INDICATION: TRAUMA/INJURY TECHNIQUE: Four views. COMPARISON: Left ankle x-ray 12/02/2016. FINDINGS: Osseous structures, joint spaces and soft tissues are normal. Ankle mortise is normal. IMPRESSION: 1. Normal left ankle. Dictated by: CHERRIE IBARRA MD D: JUSTUS;01/09/17 0704 <Electronically signed by CHERRIE IBARRA MD in OV> 01/09/17 0704 PROCEDURE: XR FOOT 3 VIEWS - LEFT INDICATION: TRAUMA/INJURY TECHNIQUE: Three views. COMPARISON: Left foot x-ray 07/02/2016. FINDINGS: No fracture dislocation. Mild degenerative changes of the midfoot. Soft tissues are unremarkable. IMPRESSION: 1. No acute changes 2. Mild midfoot osteoarthritic changes. Dictated by: CHERRIE IBARRA MD D: JUSTUS;01/09/17 0709 <Electronically signed by CHERRIE IBARRA MD in OV> 01/09/17 0710). PROGRESS AND PROCEDURES Course of Care: 16:15 01/12/17. Pt can ambulate smoothly. She is given dry paper scrub pants. Disposition: Discharged. CLINICAL IMPRESSION Sprain of the left foot. INSTRUCTIONS (WE DID NOT FIND ANY FRACTURE YOU HAVE A SPRAINED FOOT). Follow-up: Follow up with your doctor in two weeks if not well. Understanding of the discharge instructions verbalized by patient. (Electronically signed by Aren Reyes MD 01/12/2017 16:16)
--- NOTE | 2017-01-09 07:25 | ED NURSING NOTES ---
Clinical Report - Nurses [facility] [place] [address] 01/09/2017 4:14 Patient: JEFF SOTO [facility]#: [id number] TRIAGE Triage time 04:19. Acuity: LEVEL 3. Chief Complaint: RIGHT LOWER EXTREMITY PAIN. Location of symptoms- right ankle. LEFT LOWER EXTREMITY PAIN. Location of symptoms- left foot. --04:29 Manjit Munroe R.N. 04:19 01/09/17. BP: 115/89. HR: 72. RR: 18. O2 saturation: 97%. Temp: 97.7 F. Pain level now: 04/12. --04: Manjit Munroe R.N. Weight: 52.1 kg stated. Height/Length: 62 inches Per Patient. BMI: 21. --04:27 Manjit Munroe R.N. Medications Albuterol Sulfate HFA Inhalation. LamoTRIgine Oral (Tablet Dispersible 200 mg) 1 tablet, day . Sertraline HCl Oral 100 mg, daily. TraZODone HCl Oral 50 mg, at bedtime. Wellbutrin Oral (Tablet 100 mg) 1 tablet, 2x a day. --04:24 Manjit Munroe R.N. Medication/allergy information source: the patient. --04: Manjit Munroe R.N. Allergies Dilaudid. OxyCODONE HCl. --04:24 Manjit Munroe R.N. History Arrived by EMS. Historian: EMS and patient. ( Was out and walking for the last 5-6 hours ended up in [facility] and asked the [employer] employee to call 911 because of left heel and right ankle pain which she said she previously injured.). Injury occurred. This occurred (1 months ago). Occurred at home. 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 See EMS report. SOCIAL HX: Heavy tobacco smoker- 1 pack per day. Alcohol use; consumes one liquor drink weekly. Patient is a longstanding alcoholic. History of heavy drug use: marijuana. Recently used drugs today. --04:29 Manjit Munroe R.N. PROBLEMS: Hematuria. Gastroenteritis. Sprain. Bipolar Disorder. Pharyngitis. Abscess. Strep Throat. COPD - Chronic Obstructive Pulmonary Disease. Flank Pain. Bladder infection . Viral Disease. Lifestyle / Substance Problems. Epistaxis. Ankles. Abdominal Pain. Vomiting. Back Pain. Back Injury. Sinusitis. Sinus Problems. Mechanism of Injury. Dental Caries. Immunizations. Dental Pain. LNMP - Last Normal Menstrual Period. Genital Lesion. Depression. --04:25 Manjit Munroe R.N. Interventions ID band on patient. To room. --04:29 Manjit Munroe R.N. PHYSICAL ASSESSMENT To room via stretcher. GENERAL / NEURO / PSYCH: Oriented X 4. Alert. Appears in no acute distress. EXTREMITIES: Extremity pulses are within normal limits. Extremities exhibit normal ROM. Neuro-vascular status intact to the extremity. No lower extremity edema. Right ankle: (pain). Left heel: (pain). SKIN: Skin intact. Skin is warm and dry. --04:31 Manjit Munroe R.N. NURSING PROGRESS NOTES Neuro-vascular extremity check. Patient identifiers checked. Call light placed in reach. Side rails up x 1. Bed placed in lowest position. Brakes of bed on. Patient ready for evaluation- ED physician notified. --04:33 Manjit Munroe R.N. Patient gowned. ( Wet clothing removed and patient was put into gown and provided warm blankets. Patient was up at the bedside and able to walk around the room when she was changing. Still complaining of right ankle and left foot pain.). --05:29 Manjit Munroe R.N. Point of care testing: performed by nurse. Glucose: 89. Result shown to the ED physician. Orders were received. --05:39 Manjit Munroe R.N. Checked patient name and birthdate: patient confirmed. Instructions provided to collect clean catch urine and patient verbalized understanding. Clean catch urine collected with return of yellow-colored clear urine; sample sent to lab for drug screen. Specimen labeled in the presence of the patient. ( Patient assisted to to go to the bathroom to provide urine sample, patient settled back to bed after. VS stable.). GENERAL / NEURO / PSYCH: Alert. RESPIRATORY: No respiratory distress. CVS: Capillary refill less than 2 seconds. EXTREMITIES: Neuro-vascular status intact to the extremities. --05:52 Manjit Munroe R.N. 05:49 01/09/17. BP: 114/78. HR: 65. RR: 16. O2 saturation: 100%. Temp: 97.6 F. --05:52 Manjit Munroe R.N. The patient is calm. ( Patient given sandwich, cheese and drink. Eating and tolerating well.). GENERAL / NEURO / PSYCH: Alert. Oriented X 4. RESPIRATORY: No respiratory distress. CVS: Capillary refill less than 2 seconds. EXTREMITIES: Neuro-vascular status intact to the extremities. --06:01 Manjit Munroe R.N. Overall patient status- she states feels better. ( Dr. Reyes in to reassess the patient.). GENERAL / NEURO / PSYCH: The patient reports pain that is located in the right ankle and left foot. Alert. RESPIRATORY: No respiratory distress. CVS: Capillary refill less than 2 seconds. EXTREMITIES: Neuro-vascular status intact to the extremities. SKIN: Skin is warm and dry. --06:56 Manjit Munroe R.N. 06:54 01/09/17. BP: 115/71. HR: 72. RR: 14. O2 saturation: 96%. Temp: 98.1 F. --06:56 Manjit Munroe R.N. 07:18 01/09/17. Care transferred and report received. --07:18 Tila Schmitt R.N. Care transferred and report received (Tila, RN). --07:28 Brodie Sadler R.N. DISPOSITION / DISCHARGE Departure time: 0748. Condition at departure: improved and stable. No learning barriers present. Discharge instructions provided and reviewed with the patient. Reviewed referrals. Patient verbalized understanding. Written instructions provided in [place]serrat[place]. The patient was discharged by the physician. She was discharged home. She left the Emergency Department ambulatory and via bus. --07:48 Brodie Sadler R.N. Locked/Released at 01/09/2017 17:49 by Brodie Sadler R.N.
--- NOTE | 2017-01-09 07:25 | ED ORDER SUMMARY ---
..... Patient: JEFF SOTO OrderSheet [facility] VisitID: [id number] [address] [place] [address] 61y, F Registration Date/Time: 01/09/2017 ORDER SHEET Weight: 52.1 kg (stated) Allergies: Dilaudid, OxyCODONE HCl GENERAL ORDERS: Foot 3V Left Urgent (05:24 01/09/2017 Loren MAIN) (Ack 5:26 LMuller) (5:41 GUnbret) Ankle 3 or 4V Left Urgent (05:25 01/09/2017 Loren MAIN) (Ack 5:27 LMuller) (5:41 Micha) Urine Drug Screen Urgent (05:01/09/2017 Loren MAIN) (Ack 5:30 LMuller) (5:51 CHernandez R.N.) POC Glucose (05:01/09/2017 Loren MAIN) (Ack 5:34 CHernandez R.N.) (5:38 CHernandez R.N.) MEDICATION ORDERS: IV FLUIDS: ORDER SHEET NOTES: [Electronically signed by Brodie Sadler R.N. (17:49 01/09/2017)] [Electronically signed by Aren Reyes MD (16:16 01/12/2017)] [Electronically locked/signed by Brodie Sadler R.N. (17:49 01/09/2017)]
--- NOTE | 2017-01-09 07:25 | ED CLINICAL REPORT ---
Clinical Report - Physicians/Mid Levels [facility] [address] [place] [address] 01/09/2017 4:14 Patient: JEFF SOTO Time Seen: 05:00. Arrived- By ambulance. Historian- patient. HISTORY OF PRESENT ILLNESS Chief Complaint: Injury to the left foot and left ankle. The injury happened just prior to arrival. The patient sustained a twisting injury. ([employer]). ( Pt was running in the [employer]. Twisted her foot and ankle). Patient is experiencing mild pain. No other injury. REVIEW OF SYSTEMS The patient complains of pain on weight bearing. No suspected foreign body or skin laceration. PAST HISTORY PCP: Rambo Ott Ops: L foot Fx. TA, BTL. PROBLEMS: Hematuria. Gastroenteritis. Sprain. Bipolar Disorder. Pharyngitis. Abscess. Strep Throat. COPD - Chronic Obstructive Pulmonary Disease. Flank Pain. Bladder infection . Viral Disease. Lifestyle / Substance Problems. Epistaxis. Ankles. Abdominal Pain. Vomiting. Back Pain. Back Injury. Sinusitis. Sinus Problems. Mechanism of Injury. Dental Caries. Immunizations. Dental Pain. LNMP - Last Normal Menstrual Period. Genital Lesion. Depressio. SOCIAL HISTORY Current every day smoker. ADDITIONAL NOTES The nursing notes have been reviewed. PHYSICAL EXAM Vital Signs: 01/09/2017 06:54 BP: 115/71. HR: 72. RR: 14. O2 saturation: 96%. Temp: 98.1 F. 01/09/2017 05:49 BP: 114/78. HR: 65. RR: 16. O2 saturation: 100%. Temp: 97.6 F. 01/09/2017 04:19 BP: 115/89. HR: 72. RR: 18. O2 saturation: 97%. Temp: 97.7 F. Pain level now: 9/10. Appearance: Alert. No acute distress. Head: Head atraumatic. Respiratory: No respiratory distress. Abdomen: Soft and nontender. Back: Normal inspection. No tenderness. Extremities: Left ankle: mild tenderness. Left foot: mild tenderness. Gait: Normal gait. Neuro, Vascular and Tendons: Vascular status intact. Sensation intact. Motor intact. Neuro: No alteration in mental status. Note: Pants are soaking wet from running in the [place]. LABS, X-RAYS, AND EKG X-Rays: Left foot negative. Left toe(s) negative. The X-rays were independently viewed by me. Note - Tests: (PROCEDURE: XR ANKLE 3 OR 4 VIEWS - LEFT INDICATION: TRAUMA/INJURY TECHNIQUE: Four views. COMPARISON: Left ankle x-ray 12/02/2016. FINDINGS: Osseous structures, joint spaces and soft tissues are normal. Ankle mortise is normal. IMPRESSION: 1. Normal left ankle. Dictated by: CHERRIE IBARRA MD D: JUSTUS;01/09/17 0704 <Electronically signed by CHERRIE IBARRA MD in OV> 01/09/17 0704 PROCEDURE: XR FOOT 3 VIEWS - LEFT INDICATION: TRAUMA/INJURY TECHNIQUE: Three views. COMPARISON: Left foot x-ray 07/02/2016. FINDINGS: No fracture dislocation. Mild degenerative changes of the midfoot. Soft tissues are unremarkable. IMPRESSION: 1. No acute changes 2. Mild midfoot osteoarthritic changes. Dictated by: CHERRIE IBARRA MD D: JUSTUS;01/09/17 0709 <Electronically signed by CHERRIE IBARRA MD in OV> 01/09/17 0710). PROGRESS AND PROCEDURES Course of Care: 16:15 01/12/17. Pt can ambulate smoothly. She is given dry paper scrub pants. Disposition: Discharged. CLINICAL IMPRESSION Sprain of the left foot. INSTRUCTIONS (WE DID NOT FIND ANY FRACTURE YOU HAVE A SPRAINED FOOT). Follow-up: Follow up with your doctor in two weeks if not well. Understanding of the discharge instructions verbalized by patient. (Electronically signed by Aren Reyes MD 01/12/2017 16:16)
--- NOTE | 2017-01-09 07:25 | ED NURSING NOTES ---
Clinical Report - Nurses [facility] [place] [address] 01/09/2017 4:14 [id number] Triage time 04:19. Acuity: LEVEL 3. Chief Complaint: RIGHT LOWER EXTREMITY PAIN. Location of symptoms- right ankle. LEFT LOWER EXTREMITY PAIN. Location of symptoms- left foot. --04:29 Manjit Munroe R.N. 04:19 01/09/17. BP: 115/89. HR: 72. RR: 18. O2 saturation: 97%. Temp: 97.7 F. Pain level now: 04/12. --04: Manjit Munroe R.N. Weight: 52.1 kg stated. Height/Length: 62 inches Per Patient. BMI: 21. --04:27 Manjit Munroe R.N. Medications Albuterol Sulfate HFA Inhalation. LamoTRIgine Oral (Tablet Dispersible 200 mg) 1 tablet, day . Sertraline HCl Oral 100 mg, daily. TraZODone HCl Oral 50 mg, at bedtime. Wellbutrin Oral (Tablet 100 mg) 1 tablet, 2x a day. --04:24 Manjit Munroe R.N. Medication/allergy information source: the patient. --04: Manjit Munroe R.N. Allergies Dilaudid. OxyCODONE HCl. --04:24 Manjit Munroe R.N. History Arrived by EMS. Historian: EMS and patient. ( Was out and walking for the last 5-6 hours ended up in [facility] and asked the [employer] employee to call 911 because of left heel and right ankle pain which she said she previously injured.). Injury occurred. This occurred (1 months ago). Occurred at home. 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 SOCIAL HX: Heavy tobacco smoker- 1 pack per day. Alcohol use; consumes one liquor drink weekly. Patient is a longstanding alcoholic. History of heavy drug use: marijuana. Recently used drugs today. --04:29 Manjit Munroe R.N. PROBLEMS: Hematuria. Gastroenteritis. Sprain. Bipolar Disorder. Pharyngitis. Abscess. Strep Throat. COPD - Chronic Obstructive Pulmonary Disease. Flank Pain. Bladder infection . Viral Disease. Lifestyle / Substance Problems. Epistaxis. Ankles. Abdominal Pain. Vomiting. Back Pain. Back Injury. Sinusitis. Sinus Problems. Mechanism of Injury. Dental Caries. Immunizations. Dental Pain. LNMP - Last Normal Menstrual Period. Genital Lesion. Depression. --04:25 Manjit Munroe R.N. Interventions ID band on patient. To room. --04:29 Manjit Munroe R.N. PHYSICAL ASSESSMENT To room via stretcher. GENERAL / NEURO / PSYCH: Oriented X 4. Alert. Appears in no acute distress. EXTREMITIES: Extremity pulses are within normal limits. Extremities exhibit normal ROM. Neuro-vascular status intact to the extremity. No lower extremity edema. Right ankle: (pain). Left heel: (pain). SKIN: Skin intact. Skin is warm and dry. --04:31 Manjit Munroe R.N. NURSING PROGRESS NOTES Neuro-vascular extremity check. Patient identifiers checked. Call light placed in reach. Side rails up x 1. Bed placed in lowest position. Brakes of bed on. Patient ready for evaluation- ED physician notified. --04:33 Manjit Munroe R.N. Patient gowned. ( Wet clothing removed and patient was put into gown and provided warm blankets. Patient was up at the bedside and able to walk around the room when she was changing. Still complaining of right ankle and left foot pain.). --05:29 Manjit Munroe R.N. Point of care testing: performed by nurse. Glucose: 89. Result shown to the ED physician. Orders were received. --05:39 Manjit Munroe R.N. Checked patient name and birthdate: patient confirmed. Instructions provided to collect clean catch urine and patient verbalized understanding. Clean catch urine collected with return of yellow-colored clear urine; sample sent to lab for drug screen. Specimen labeled in the presence of the patient. ( Patient assisted to to go to the bathroom to provide urine sample, patient settled back to bed after. VS stable.). GENERAL / NEURO / PSYCH: Alert. RESPIRATORY: No respiratory distress. CVS: Capillary refill less than 2 seconds. EXTREMITIES: Neuro-vascular status intact to the extremities. --05:52 Manjit Munroe R.N. 05:49 01/09/17. BP: 114/78. HR: 65. RR: 16. O2 saturation: 100%. Temp: 97.6 F. --05:52 Manjit Munroe R.N. The patient is calm. ( Patient given sandwich, cheese and drink. Eating and tolerating well.). GENERAL / NEURO / PSYCH: Alert. Oriented X 4. RESPIRATORY: No respiratory distress. CVS: Capillary refill less than 2 seconds. EXTREMITIES: Neuro-vascular status intact to the extremities. --06:01 Manjit Munroe R.N. Overall patient status- she states feels better. ( Dr. Reyes in to reassess the patient.). GENERAL / NEURO / PSYCH: The patient reports pain that is located in the right ankle and left foot. Alert. RESPIRATORY: No respiratory distress. CVS: Capillary refill less than 2 seconds. EXTREMITIES: Neuro-vascular status intact to the extremities. SKIN: Skin is warm and dry. --06:56 Manjit Munroe R.N. 06:54 01/09/17. BP: 115/71. HR: 72. RR: 14. O2 saturation: 96%. Temp: 98.1 F. --06:56 Manjit Munroe R.N. 07:18 01/09/17. Care transferred and report received. --07:18 Tila Schmitt R.N. Care transferred and report received (Tila, RN). --07:28 Brodie Sadler R.N. DISPOSITION / DISCHARGE Departure time: 0748. Condition at departure: improved and stable. No learning barriers present. Discharge instructions provided and reviewed with the patient. Reviewed referrals. Patient verbalized understanding. Written instructions provided in [place]. The patient was discharged by the physician. She was discharged home. She left the Emergency Department ambulatory and via bus. --07:48 Brodie Sadler R.N. Locked/Released at 01/09/2017 17:49 by Brodie Sadler R.N.
--- NOTE | 2017-01-12 16:17 | ED DISCHARGE INSTRUCTIONS ---
Patient: JEFF SOTO General Instructions [facility] VisitID: [id number] [place] [address] 61y, F Registration Date/Time: 01/09/2017 Sprain of the left foot. INSTRUCTIONS (WE DID NOT FIND ANY FRACTURE YOU HAVE A SPRAINED FOOT). Follow-up: Follow up with your doctor in two weeks if not well. Understanding of the discharge instructions verbalized by patient. ADDITIONAL INFORMATION Sprain, Foot A sprain is a stretching or tearing of the ligaments that hold a joint together. There are no broken bones. Sprains take from 36 weeks to heal. A sprain may be treated with a splint, walking cast or special boot. Mild sprains may not require any additional support. Home care The following guidelines will help you care for your injury at home: Keep your leg elevated when sitting or lying down. This is very important during the first 48 hours to reduce swelling. Stay off the injured foot as much as possible until you can walk on it without pain. If needed, you may use crutches during the first week for this purpose. (Crutches can be rented at many pharmacies or surgical/orthopedic supply stores). You may be given a cast shoe to wear to prevent movement in your foot. If not, you can use a sandal or any shoe that does not put pressure on the injured area until the swelling and pain go away. If using a sandal, be careful not to strike your foot against anything, since another injury could make the sprain worse. Apply an ice pack (ice cubes in a plastic bag, wrapped in a towel) over the injured area for 20 minutes every 12 hours the first day. You should continue with ice packs 34 times a day for the next two days. Continue the use of ice packs for relief of pain and swelling as needed. You may use acetaminophen or ibuprofen to control pain, unless another medicine was prescribed. If you have chronic liver or kidney disease or ever had a stomach ulcer or GI bleeding, talk with your doctor before using these medicines. If you were given a splint or cast, keep it dry. Bathe with your splint/cast well out of the water, protected with a large plastic bag, rubber-banded at the top end. If a fiberglass splint or cast gets wet, you can dry it with a hair-dryer. You may return to sports after healing, when you can run without pain. Follow-up care Follow up with your doctor as directed. Any X-rays you had today dont show any broken bones, breaks, or fractures. Sometimes fractures dont show up on the first X-ray. Bruises and sprains can sometimes hurt as much as a fracture. These injuries can take time to heal completely. If your symptoms dont improve or they get worse, talk with your doctor. You may need a repeat X-ray. When to seek medical care Get prompt medical attention if any of the following occur: The plaster cast or splint gets wet or soft The fiberglass cast or splint gets wet and does not dry for 24 hours Pain or swelling increases, or redness appears Toes become cold, blue, numb, or tingly You have been given the following additional information: Sprain, Foot (Electronically signed by Aren Reyes MD 01/12/2017 16:16)
--- NOTE | 2017-01-12 16:17 | ED MED RECONCILIATION SUMMARY ---
Patient: JEFF SOTO Medication Reconciliation Report [facility] VisitID: [id number] [address] [place] [address] 61y, F Registration Date/Time: 01/09/2017 Weight: 52.1 kg Height/Length: 62 in. BMI: 21.0 ALLERGIES: Dilaudid, OxyCODONE HCl The patient's Home Medications are listed below: THE FOLLOWING MEDICATIONS NEED TO BE RECONCILED: Albuterol Sulfate HFA Inhalation LamoTRIgine Oral (200 mg) 1 tablet, day Sertraline HCl Oral 100 mg, daily TraZODone HCl Oral 50 mg, at bedtime Wellbutrin Oral (100 mg) 1 tablet, 2x a day The source(s) of the original Home Medication information: patient The following Medications were given to the patient in the Emergency Department: None. The following Medications were prescribed to the patient: None.
--- NOTE | 2017-01-12 16:17 | ED MAR SUMMARY ---
..... Medication Administration Record [facility] [address] [place], [place] [id number] Patient: JEFF SOTO Visit ID: [id number] 61y, F Weight: 52.1 kg Height/Length: 62 in BMI: 21 ALLERGIES: Dilaudid, OxyCODONE HCl
--- NOTE | 2017-01-12 16:17 | ED MED RECONCILIATION SUMMARY ---
Patient: JEFF SOTO Medication Reconciliation Report [facility] VisitID: [id number] [address] [place] [address] 61y, F Registration Date/Time: 01/09/2017 Weight: 52.1 kg Height/Length: 62 in. BMI: 21.0 ALLERGIES: Dilaudid, OxyCODONE HCl The patient's Home Medications are listed below: THE FOLLOWING MEDICATIONS NEED TO BE RECONCILED: Albuterol Sulfate HFA Inhalation LamoTRIgine Oral (200 mg) 1 tablet, day Sertraline HCl Oral 100 mg, daily TraZODone HCl Oral 50 mg, at bedtime Wellbutrin Oral (100 mg) 1 tablet, 2x a day The source(s) of the original Home Medication information: patient The following Medications were given to the patient in the Emergency Department: None. The following Medications were prescribed to the patient: None.
--- NOTE | 2017-01-12 16:17 | ED MAR SUMMARY ---
..... Medication Administration Record [facility] [address] [place], [place] [id number] Patient: JEFF SOTO Visit ID: [id number] 61y, F Weight: 52.1 kg Height/Length: 62 in BMI: 21 ALLERGIES: Dilaudid, OxyCODONE HCl
== END 2017-01-09 07:48 | disposition home or self-care (01) ==
LOC: ED SRH 04:14
DX: S93.602A Unspecified sprain of left foot, initial encounter (principal); X50.1XXA Overexertion from prolonged static or awkward postures, initial encounter; Y93.02 Activity, running; Y92.821 Forest as the place of occurrence of the external cause; F17.200 Nicotine dependence, unspecified, uncomplicated; Y99.8 Other external cause status